=== PATIENT | male | born 1935 | race Caucasian/White ===

== ENCOUNTER → 2016-10-10 | Outpatient (CLI) | payer MEDICARE, OTHER ==
[~2016-10-10] MED LIST: /AMLO25TA; /PANT40TA; ASPI81TA3; BENA40TA2; CIPR500T4; FLAG500T; FURO20TA2; ZANT150T; ZOCO20TA
[2016-10-10 13:31] LABS: CALCIUM LEVEL 8.4 MG/DL (8.8-10.2); CREATININE FOR GFR 1.3 MG/DL (0.70-1.30); GLOMERULAR FILTRATION RATE 56.5 (>35); POTASSIUM SERUM 4.4 MEQ/L (3.5-5.1)
== END ==
LOC: M WUC 10:00
PROVIDERS: ATTEND Nurse Practitioner Family
DX: E11.22 Type 2 diabetes mellitus with diabetic chronic kidney disease (principal)

== ENCOUNTER → 2017-05-01 | Outpatient (CLI) | payer MEDICARE, OTHER ==
[2017-05-01 09:53] LABS: MEAN CORPUSCULAR HEMOGLOBIN 31.3 pg (27.0-33.0); MEAN CORPUSCULAR HGB CONC 33.2 g/dl (32.0-36.5); MEAN CORPUSCULAR VOLUME 94.2 fl (80.0-96.0); RED CELL DISTRIBUTION WIDTH 13.1 % (11.5-14.5); WHITE BLOOD COUNT 7.8 K/mm3 (4.0-10.0)
[2017-05-01 10:14] LABS: ALBUMIN 3.5 GM/DL (3.2-5.2); ALBUMIN/GLOBULIN RATIO 0.97 (1.00-1.93); BILIRUBIN,TOTAL 0.6 MG/DL (0.2-1.0); CALCIUM LEVEL 8.6 MG/DL (8.8-10.2); CREATININE FOR GFR 1.7 MG/DL (0.70-1.30); GLOMERULAR FILTRATION RATE 41.5 (>35); TOTAL PROTEIN 7.1 GM/DL (6.4-8.2)
[2017-05-01 10:18] LABS: POTASSIUM SERUM 5.2 MEQ/L (3.5-5.1)
== END ==
LOC: M WUC 08:14
PROVIDERS: ATTEND Family Medicine
DX: E11.8 Type 2 diabetes mellitus with unspecified complications (principal)

== ENCOUNTER → 2017-05-07 | Outpatient (REF) | payer MEDICARE, OTHER | LOC: M SFHCPLAZ 10:06 | PROVIDERS: ATTEND Family Medicine | DX: N18.3 Chronic kidney disease, stage 3 (moderate) (principal) | CPT/HCPCS: 82043; G0463 ==

== ENCOUNTER → 2017-05-09 | Outpatient (CLI) | payer MEDICARE, OTHER ==
--- NOTE | 2017-05-10 14:32 | REP ---
Clinical: Chronic medical renal disease stage III. Technique: Real time niño scale ultrasound examination using curved array transducer. Findings: The bilateral kidneys are relatively normal in reniform shape with increased parenchymal echogenicity and scattered bilateral cysts as well as suspected renovascular calcifications. There is no evidence for hydronephrosis, obvious renal mass lesion or perinephric fluid collection. The right kidney measures 10.8 x 4.8 x 5.6 cm with multiple cysts measuring up to 1.7 cm in the lower pole. The left kidney measures 11.5 x 5.4 x 5.5 cm with multiple cysts measuring up to 2.3 cm in the upper pole. The bladder is unremarkable and measures 8.2 x 7.0 x 6.8 cm without wall thickening or mass lesion. The prostate gland is heterogeneous and enlarged measuring 5.2 x 5.2 x 4.3 cm (61 ml). Impression: Evidence for chronic medical renal disease and few bilateral renal cysts. Moderately enlarged prostate gland. Signed by Parish Bloom MD 05/09/2017 10:53 P
== END ==
LOC: M SMT 09:42
PROVIDERS: ATTEND Family Medicine
DX: N18.3 Chronic kidney disease, stage 3 (moderate) (principal); N28.1 Cyst of kidney, acquired; N40.1 Benign prostatic hyperplasia with lower urinary tract symptoms

== ENCOUNTER → 2017-07-08 | Outpatient (REF) | payer MEDICARE, OTHER ==
[2017-07-08 13:46] LABS: MEAN CORPUSCULAR HEMOGLOBIN 30.1 pg (27.0-33.0); MEAN CORPUSCULAR VOLUME 93.9 fl (80.0-96.0); PLATELET COUNT, AUTOMATED 240 10^3/uL (150-450); RED CELL DISTRIBUTION WIDTH 13.5 % (11.5-14.5); WHITE BLOOD COUNT 7.3 10^3/uL (4.0-10.0)
[2017-07-08 14:00] LABS: CALCIUM LEVEL 9.3 MG/DL (8.8-10.2); CREATININE FOR GFR 1.37 MG/DL (0.70-1.30); GLOMERULAR FILTRATION RATE 53.2 (>35); POTASSIUM SERUM 4.7 MEQ/L (3.5-5.1)
== END ==
LOC: M SFHCPLAZ 10:19
PROVIDERS: ATTEND Family Medicine
DX: N18.3 Chronic kidney disease, stage 3 (moderate) (principal); E11.8 Type 2 diabetes mellitus with unspecified complications
CPT/HCPCS: 36415; 80048; 83036; 85027; G0463

== ENCOUNTER → 2018-02-05 | Outpatient (CLI) | payer MEDICARE, OTHER ==
[2018-02-05 09:04] LABS: HEMATOCRIT 38.6 % (42.0-52.0); HEMOGLOBIN 12.8 g/dl (13.5-17.5); MEAN CORPUSCULAR HEMOGLOBIN 29.8 pg (27.0-33.0); MEAN CORPUSCULAR HGB CONC 33.2 g/dl (32.0-36.5); PLATELET COUNT, AUTOMATED 207 10^3/uL (150-450); RED BLOOD COUNT 4.29 10^6/uL (4.30-6.10); RED CELL DISTRIBUTION WIDTH 12.8 % (11.5-14.5); WHITE BLOOD COUNT 8.6 10^3/uL (4.0-10.0)
[2018-02-05 09:31] LABS: ANION GAP 7 MEQ/L (8-16); BLOOD UREA NITROGEN 49 MG/DL (7-18); CALCIUM LEVEL 8.4 MG/DL (8.8-10.2); CARBON DIOXIDE LEVEL 27 MEQ/L (21-32); CHLORIDE LEVEL 107 MEQ/L (98-107); CREATININE FOR GFR 1.74 MG/DL (0.70-1.30); GLOMERULAR FILTRATION RATE 40.3 (>35); GLUCOSE, FASTING 213 MG/DL (70-100); POTASSIUM SERUM 4.9 MEQ/L (3.5-5.1); SODIUM LEVEL 141 MEQ/L (136-145)
[2018-02-05 09:33] LABS: ESTIMATED AVERAGE GLUCOSE 212 MG/DL (60-110)
[2018-02-05 09:45] LABS: CREATININE, URINE 92.6 MG/DL; MALB URINE SIEMENS 15.6 MG/L; MAU/CREAT RATIO 16.8 MCG/MG (0.0-30.0)
== END ==
LOC: M WUC 08:09
DX: E11.22 Type 2 diabetes mellitus with diabetic chronic kidney disease (principal); N18.3 Chronic kidney disease, stage 3 (moderate)
CPT/HCPCS: 83036

== ENCOUNTER → 2018-05-15 | Outpatient (CLI) | payer MEDICARE, OTHER ==
[2018-05-15 14:01] LABS: ANION GAP 10 MEQ/L (8-16); BLOOD UREA NITROGEN 37 MG/DL (7-18); CALCIUM LEVEL 8.5 MG/DL (8.8-10.2); CARBON DIOXIDE LEVEL 25 MEQ/L (21-32); CHLORIDE LEVEL 106 MEQ/L (98-107); CREATININE FOR GFR 1.61 MG/DL (0.70-1.30); GLOMERULAR FILTRATION RATE 44.1 (>35); GLUCOSE, FASTING 188 MG/DL (70-100); POTASSIUM SERUM 5.1 MEQ/L (3.5-5.1); SODIUM LEVEL 141 MEQ/L (136-145)
[2018-05-15 15:18] LABS: ESTIMATED AVERAGE GLUCOSE 180 MG/DL (60-110); HEMOGLOBIN A1c 7.9 %
== END ==
LOC: M WUC 08:43
DX: E11.22 Type 2 diabetes mellitus with diabetic chronic kidney disease (principal)
CPT/HCPCS: 83036

== ENCOUNTER → 2018-05-21 | Outpatient (REF) | payer MEDICARE, OTHER ==
[2018-05-21 14:43] LABS: FERRITIN 170 NG/ML (26-388); IRON (FE) 72 UG/DL (65-175); TOTAL IRON BINDING CAPACITY 310 UG/DL (250-450)
[2018-05-21 21:02] LABS: PERCENT SATURATION 23.2 % (19.7-50.0)
== END ==
LOC: M LAB REF 13:40
DX: D64.9 Anemia, unspecified (principal)
CPT/HCPCS: 83550

== ENCOUNTER → 2018-05-22 | Outpatient (REF) | payer MEDICARE, OTHER | LOC: M LAB REF 16:03 | DX: L08.9 Local infection of the skin and subcutaneous tissue, unspecified (principal) | CPT/HCPCS: 87077 ==

== ENCOUNTER → 2018-06-10 | Outpatient (REF) | payer MEDICARE, OTHER | LOC: M LAB REF 09:18 | DX: L72.3 Sebaceous cyst (principal) | CPT/HCPCS: 88304 ==

== ENCOUNTER 2018-06-21 04:54 | Emergency (ER) | payer MEDICARE, OTHER ==
[2018-06-21] MEDS: METHOCARBAMOL 1,000 MG/10 ML VIAL (J2800) IV (06:02)
[2018-06-21] MEDS: ONDANSETRON 4MG/2ML VIAL (J2405) IV (06:02)
[2018-06-21] MEDS: methylPREDNISolone INJ 40 MG/1 ML VIAL (J2920) IV (06:02)
[2018-06-21] MEDS: MORPHINE 4 MG/ML 1ML VIAL/SYRINGE (J2270) IV ×2 (06:11→06:46)
== END 2018-06-21 07:49 | disposition home or self-care (01) ==
LOC: M ED 04:54
DX: M54.5 Low back pain (principal)
CPT/HCPCS: J2270

== ENCOUNTER 2018-06-27 10:18 | Emergency (ER) | payer MEDICARE, OTHER ==
[2018-06-27] MEDS: CYCLOBENZAPRINE 5MG TABLET PO (11:37)
[2018-06-27] MEDS: predniSONE 20 MG TAB PO (11:37)
[2018-06-27] MEDS: MORPHINE 10 MG/ML 1ML VIAL (J2270) IM (11:38)
== END 2018-06-27 12:14 | disposition home or self-care (01) ==
LOC: M ED 10:18
DX: M54.41 Lumbago with sciatica, right side (principal); M54.42 Lumbago with sciatica, left side; Z79.899 Other long term (current) drug therapy; Z79.82 Long term (current) use of aspirin; Z79.84 Long term (current) use of oral hypoglycemic drugs
CPT/HCPCS: J2270

== ENCOUNTER → 2018-08-20 | Outpatient (CLI) | payer MEDICARE, OTHER ==
[2018-08-20 12:20] LABS: HEMATOCRIT 34.8 % (42.0-52.0); HEMOGLOBIN 11.5 g/dl (13.5-17.5); MEAN CORPUSCULAR HEMOGLOBIN 30.4 pg (27.0-33.0); MEAN CORPUSCULAR VOLUME 92.1 fl (80.0-96.0); PLATELET COUNT, AUTOMATED 226 10^3/uL (150-450); RED BLOOD COUNT 3.78 10^6/uL (4.30-6.10); RED CELL DISTRIBUTION WIDTH 14.1 % (11.5-14.5); WHITE BLOOD COUNT 6.5 10^3/uL (4.0-10.0)
[2018-08-20 13:27] LABS: ALBUMIN 3.4 GM/DL (3.2-5.2); ALKALINE PHOSPHATASE 148 U/L (45-117); ALT/SGPT 54 U/L (12-78); ANION GAP 10 MEQ/L (8-16); AST/SGOT 36 U/L (7-37); BILIRUBIN,TOTAL 0.5 MG/DL (0.2-1.0); BLOOD UREA NITROGEN 43 MG/DL (7-18); CALCIUM LEVEL 8.7 MG/DL (8.8-10.2); CARBON DIOXIDE LEVEL 25 MEQ/L (21-32); CHLORIDE LEVEL 108 MEQ/L (98-107); CHOLESTEROL LEVEL 96 MG/DL (<200); CREATININE FOR GFR 1.71 MG/DL (0.70-1.30); GLOMERULAR FILTRATION RATE 41.1 (>35); GLUCOSE, FASTING 157 MG/DL (70-100); HDL CHOLESTEROL 40 MG/DL (>40); LDL CHOLESTEROL 45 MG/DL (<100); NON-HDL-C 56 MG/DL; POTASSIUM SERUM 4.6 MEQ/L (3.5-5.1); SODIUM LEVEL 143 MEQ/L (136-145); TOTAL PROTEIN 6.5 GM/DL (6.4-8.2); TRIGLYCERIDES LEVEL 54 MG/DL (<150)
[2018-08-20 16:29] LABS: ESTIMATED AVERAGE GLUCOSE 252 MG/DL (60-110); HEMOGLOBIN A1c 10.4 %
== END ==
LOC: M WUC 10:01
DX: N18.3 Chronic kidney disease, stage 3 (moderate) (principal); E11.22 Type 2 diabetes mellitus with diabetic chronic kidney disease; I25.10 Atherosclerotic heart disease of native coronary artery without angina pectoris
CPT/HCPCS: 80053

== ENCOUNTER → 2018-12-01 | Outpatient (CLI) | payer MEDICARE, OTHER ==
[~2018-12-01] MED LIST changes: +ATOR40TA75; +BENA20TA8 PO; +CYCL5TAB PO; +LYRI75CA; +METF500T13; +PERC5TAB12 PO; +PRED10TA2 PO; +PRED20TA PO
[2018-12-01 12:40] LABS: CALCIUM LEVEL 8.5 MG/DL (8.8-10.2); CREATININE FOR GFR 1.64 MG/DL (0.70-1.30); POTASSIUM SERUM 4.5 MEQ/L (3.5-5.1)
[2018-12-01 13:10] LABS: HEMOGLOBIN A1c 6.8 %
== END ==
LOC: M WUC 08:45
PROVIDERS: ATTEND Family Medicine
DX: E11.22 Type 2 diabetes mellitus with diabetic chronic kidney disease (principal)

== ENCOUNTER → 2019-04-23 | Outpatient (CLI) | payer MEDICARE, OTHER ==
[~2019-04-23] MED LIST changes: -/AMLO25TA; -/PANT40TA; +AMLO25TA PO; +ASPI81CH33 PO; -ATOR40TA75; +ATOR40TA75 PO; +D3 S1CAP3 PO; +HYDR12CA PO; -LYRI75CA; +LYRI75CA PO; +MAGN400C2 PO; -METF500T13; +METF500T13 PO; +NORV2TAB; +PANT40TA3 PO; +PROT1TAB2
[2019-04-23 12:57] LABS: HEMATOCRIT 36.9 % (42.0-52.0); MEAN CORPUSCULAR HEMOGLOBIN 29.9 pg (27.0-33.0); MEAN CORPUSCULAR HGB CONC 32.5 g/dl (32.0-36.5); MEAN CORPUSCULAR VOLUME 91.8 fl (80.0-96.0); PLATELET COUNT, AUTOMATED 196 10^3/uL (150-450); RED BLOOD COUNT 4.02 10^6/uL (4.30-6.10); WHITE BLOOD COUNT 6.5 10^3/uL (4.0-10.0)
[2019-04-23 13:19] LABS: ALBUMIN 3.4 GM/DL (3.2-5.2); BILIRUBIN,TOTAL 0.3 MG/DL (0.2-1.0); CALCIUM LEVEL 8.9 MG/DL (8.8-10.2); CHOLESTEROL RISK RATIO 2.705 (<5); CREATININE FOR GFR 1.47 MG/DL (0.70-1.30); GLOMERULAR FILTRATION RATE 48.8 (>35); POTASSIUM SERUM 4.7 MEQ/L (3.5-5.1); TOTAL PROTEIN 6.8 GM/DL (6.4-8.2)
[2019-04-23 14:37] LABS: HEMOGLOBIN A1c 7.2 %
== END ==
LOC: M WUC 08:37
PROVIDERS: ATTEND Family Medicine
DX: N18.3 Chronic kidney disease, stage 3 (moderate) (principal); E11.29 Type 2 diabetes mellitus with other diabetic kidney complication; E78.2 Mixed hyperlipidemia

== ENCOUNTER → 2019-09-11 | Outpatient (REF) | payer MEDICARE, OTHER ==
[~2019-09-11] MED LIST changes: +AMLO5TAB6 PO; +HYDR12.55 PO; +LYRI75CA; +PEG1POW PO; +SITA50TAB; +TADA20TA PO; +VITA100066 PO; +VITA500C24 PO
[2019-09-11 11:46] LABS: HEMATOCRIT 42.7 % (42.0-52.0); HEMOGLOBIN 13.5 g/dl (13.5-17.5); MEAN CORPUSCULAR HEMOGLOBIN 29.9 pg (27.0-33.0); MEAN CORPUSCULAR HGB CONC 31.6 g/dl (32.0-36.5); MEAN CORPUSCULAR VOLUME 94.5 fl (80.0-96.0); PLATELET COUNT, AUTOMATED 206 10^3/uL (150-450); RED BLOOD COUNT 4.52 10^6/uL (4.30-6.10); WHITE BLOOD COUNT 7.3 10^3/uL (4.0-10.0)
[2019-09-11 12:06] LABS: ALBUMIN 3.6 GM/DL (3.2-5.2); BILIRUBIN,TOTAL 0.6 MG/DL (0.2-1.0); CALCIUM LEVEL 9.3 MG/DL (8.8-10.2); CHOLESTEROL RISK RATIO 2.523 (<5); CREATININE FOR GFR 1.49 MG/DL (0.70-1.30); GLOMERULAR FILTRATION RATE 48.1 (>35); POTASSIUM SERUM 5.4 MEQ/L (3.5-5.1); TOTAL PROTEIN 7.1 GM/DL (6.4-8.2)
[2019-09-11 12:51] LABS: HEMOGLOBIN A1c 7.6 %
== END ==
LOC: M SFHCPLAZ 09:49
PROVIDERS: ATTEND Family Medicine
DX: E11.22 Type 2 diabetes mellitus with diabetic chronic kidney disease (principal); E78.2 Mixed hyperlipidemia; N18.3 Chronic kidney disease, stage 3 (moderate)
CPT/HCPCS: 36415; 80053; 80061; 83036; 85027; G0463

== ENCOUNTER 2019-09-15 19:16 | Inpatient (IN) | payer MEDICARE, OTHER ==
[~2019-09-15] VITALS: Ht 177.8 cm; Wt 81.1 kg
[~2019-09-15 19:16] MED LIST changes: -AMLO5TAB6 PO; -HYDR12.55 PO; -LYRI75CA; -PEG1POW PO; -SITA50TAB; -TADA20TA PO; -VITA100066 PO; -VITA500C24 PO
[2019-09-15] MEDS ORDERED: LYRI75CA (19:38)
[2019-09-15] MEDS ORDERED: FURO20TA2 (19:38)
[2019-09-15] MEDS ORDERED: VITA500C24 PO (19:38)
[2019-09-15] MEDS ORDERED: METF500T13 PO (19:38)
[2019-09-15] MEDS ORDERED: TADA20TA PO (19:38)
[2019-09-15] MEDS ORDERED: SITA50TAB (19:38)
[2019-09-15] MEDS ORDERED: HYDR12.55 PO (19:38)
[2019-09-15] MEDS ORDERED: NS 1,000 ML IV ONE (20:30)
[2019-09-15] MEDS ORDERED: ONDANSETRON 4MG/2ML VIAL (J2405) IV ONE (20:30)
[2019-09-15] MEDS ORDERED: MORPHINE 4 MG/ML 1ML VIAL/SYRINGE (J2270) IV PRN (20:30)
[2019-09-15] MEDS ORDERED: VITA100066 PO (20:47)
[2019-09-15] MEDS ORDERED: AMLO5TAB6 PO (20:47)
[2019-09-15 20:57] LABS: BASO # 0.1 10^3/uL (0.0-0.2); BASO % 0.4 % (0.0-1.0); EOS # 0.1 10^3/uL (0.0-0.5); EOS % 1.1 % (0.0-3.0); HEMATOCRIT 46.2 % (42.0-52.0); HEMOGLOBIN 14.5 g/dl (13.5-17.5); LYMPH # 1.3 10^3/uL (1.5-5.0); LYMPH % 10.1 % (24.0-44.0); MEAN CORPUSCULAR HEMOGLOBIN 29.4 pg (27.0-33.0); MEAN CORPUSCULAR HGB CONC 31.4 g/dl (32.0-36.5); MEAN CORPUSCULAR VOLUME 93.7 fl (80.0-96.0); MONO # 0.7 10^3/uL (0.0-0.8); MONO % 5.9 % (0.0-5.0); NEUTROPHILS # 10.1 10^3/uL (1.5-8.5); NEUTROPHILS % 81.9 % (36.0-66.0); PLATELET COUNT, AUTOMATED 266 10^3/uL (150-450); RED BLOOD COUNT 4.93 10^6/uL (4.30-6.10); WHITE BLOOD COUNT 12.4 10^3/uL (4.0-10.0)
[2019-09-15] MEDS: HumaLOG INSULIN (NovoLOG) PER UNIT SC SCH (21:00)
[2019-09-15 21:08] LABS: INR 1.02; PROTHROMBIN TIME 13.1 SECONDS (11.8-14.0)
[2019-09-15 21:09] LABS: PARTIAL THROMBOPLASTIN TIME 27.8 SECONDS (25.0-38.4)
[2019-09-15 21:27] LABS: ALBUMIN 4.1 GM/DL (3.2-5.2); ALT/SGPT 97 U/L (12-78); BILIRUBIN,DIRECT 0.1 MG/DL (0.0-0.2); BILIRUBIN,TOTAL 0.5 MG/DL (0.2-1.0); CK-MB VALUE MASS < 1.0 NG/ML (<3.6); CPK CREATINE PHOSPHOKINASE 92 U/L (39-308); LIPASE 65 U/L (73-393); MB/CK RELATIVE INDEX 1.09 (< OR =4); TROPONIN I < 0.02 NG/ML (< 0.10)
--- NOTE | 2019-09-15 21:39 | REPVR ---
PROCEDURE INFORMATION: Exam: CT Head Without Contrast Exam date and time: 09/15/2019 9:24 PM Age: 83 years old Clinical indication: Syncope and collapse; Additional info: Syncope, abd pain TECHNIQUE: Imaging protocol: Computed tomography of the head without contrast. Radiation optimization: All CT scans at this facility use at least one of these dose optimization techniques: automated exposure control; mA and/or kV adjustment per patient size (includes targeted exams where dose is matched to clinical indication); or iterative reconstruction. COMPARISON: CT Head without contrast 02/19/2014 5:43 PM FINDINGS: Brain: There are mild periventricular and subcortical lucencies consistent with chronic microvascular ischemic changes. The niño-white differentiation is maintained. No hemorrhage. No edema. Ventricles: Ventricles and sulci are prominent consistent with age appropriate parenchymal volume loss. Bones/joints: Unremarkable. No acute fracture. Sinuses: Visualized sinuses are unremarkable. No fluid levels. Mastoid air cells: Visualized mastoid air cells are well aerated. Soft tissues: Unremarkable. IMPRESSION: No acute intracranial abnormality. Electronically signed by: Pierre Palacio On 09/15/2019 21:39:31 PM
--- NOTE | 2019-09-15 21:47 | REPVR ---
PROCEDURE INFORMATION: Exam: CT Abdomen And Pelvis Without Contrast Exam date and time: 09/15/2019 9:24 PM Age: 83 years old Clinical indication: Abdominal pain; Generalized; Additional info: Syncope, abd pain TECHNIQUE: Imaging protocol: Computed tomography of the abdomen and pelvis without contrast. Radiation optimization: All CT scans at this facility use at least one of these dose optimization techniques: automated exposure control; mA and/or kV adjustment per patient size (includes targeted exams where dose is matched to clinical indication); or iterative reconstruction. COMPARISON: CT ABD PELVIS W/O FOL BY WIT 06/15/2014 11:27 AM FINDINGS: Lungs: Minimal groundglass opacification in the medial right middle lobe . Liver: Normal. No mass. Gallbladder and bile ducts: Cholecystectomy clips. Pancreas: Fatty atrophy of the pancreas. Spleen: Normal. No splenomegaly. Adrenals: Normal. No mass. Kidneys and ureters: 2 cm cyst at the lower pole of the right kidney. 2 mm nonobstructing calculus in the midpole of the left kidney. Multiple left renal cysts with the largest measuring 3.1 cm in the upper pole. Stomach and bowel: Colon is filled with liquid stool. Appendix: No evidence of appendicitis. Intraperitoneal space: Unremarkable. No free air. No significant fluid collection. Vasculature: Atherosclerotic calcification of the aorta and bilateral iliac vessels. Lymph nodes: Unremarkable. No enlarged lymph nodes. Bladder: Unremarkable as visualized. Reproductive: Unremarkable as visualized. Bones/joints: Unremarkable. No acute fracture. Soft tissues: Unremarkable. IMPRESSION: No acute abdominal or pelvic abnormality. Colon is filled with liquid stool. Clinical correlation with diarrhea. Minimal groundglass opacification in the medial right middle lobe, partially seen. Etiology infectious/inflammatory. Comparison with any recent chest x-ray can be helpful. Electronically signed by: Pierre Palacio On 09/15/2019 21:47:17 PM
--- NOTE | 2019-09-15 22:59 | HPEPDOC ---
[facility] Medical History & Physical Date of Admission Sep 15, 2019 Date of Service: Sep 16, 2019 Primary Care Physician: Leon Shannon MD Attending Physician: Leon Shannon MD History and Physical TIME OF SERVICE: 12:05 AM CHIEF COMPLAINT: Abdominal pain/loss of consciousness HISTORY OF PRESENT ILLNESS: This is an 83-year-old male who presented to the hospital today with complaints of cramping abdominal pain associated with constipation for 3 days. He also had 2 also had a syncopal episodes. The first occurred while he was standing at a meeting; it was preceded by sweating. He doesn't think that his serum glucose was low because his glucoses been in the 90s and he has not missed any meals. The second episode occurred in the ER while he was having a bowel movement. He also reports having an episode of emesis in the ER; he is not sure if there was blood . Prior to the syncopal episodes, he denies having headaches, blurred vision, shortness of breath, sensation of his heart racing, fevers, chills, or chest pain. His chronic right hip and back pain are also bothering him. REVIEW OF SYSTEMS: 12 point review of systems negative except as listed in HPI PAST MEDICAL/ SURGICAL HISTORY: Chronic hypertension CKD 3 NIDDM Restless leg syndrome Chronic CAD status post triple-vessel CABG and stent in [facility]CI BPH Lumbar spine DJD ED/low testosterone SOCIAL HISTORY: He does not smoke FAMILY HISTORY: CVA CKD Hypertension Diabetes ALLERGIES: Please see below. HOME MEDICATIONS: Please see below. PHYSICAL EXAMINATION: VITAL SIGNS: Please see below. GEN: well-nourished / well developed/ appears to be in pain INTEGUMENT: not flushed/ not jaundice HEENT: NCAT /mucus membranes moist and pink CVS: RRR/he has a systolic murmur LUNGS: lungs are clear to auscultation bilaterally on room air ABDOMEN: Contour (flat) / the abdomen is tympanic on percussion, soft & tender with palpation MSK/EXTREMITIES: range of motion intact in all 4 extremities NEURO: CN 2-12 are grossly intact / speech is not dysarthric PSYCH: alert and oriented to person place and time/ able to understand and follow all commands LABORATORY DATA: See below. IMAGING: CT of the head was unremarkable. CT of the abdomen and pelvis " IMPRESSION: No acute abdominal or pelvic abnorma lity. Colon is filled with liquid stool. Clinical correlation with diarrhea. Minimal groundglass opacification in the medial right middle lobe, partially seen. Etiology infectious/inflammatory. Comparison with any recent chest x-ray can be helpful. MICROBIOLOGY: Please see below. ASSESSMENT: Mr. Vigil is an 83-year-old with a history of HTN CKD 3, RLS, CAD, BPH, and lumbar spinal DJD, who is admitted for evaluation of syncope, JUAQUIN and abdominal pain. PLAN: 1. Syncope Orthostats were negative. He is not bradycardic Cause to be determined. EKG ( per Dr. Perez) showed right bundle branch block similar to previous EKGs History of troponin was unremarkable His hemoglobin was above 9. CT of the head was unremarkable Plan: Telemetry for observation / IVF fluids/fall precautions 2. JUAQUIN on CKD 3 Today his creatinine is 1.8 on Sep 11 it was 1.49 Today his BUN is 52 on Sep 11 it was 40 CK is 92 Ultrasound of the kidneys done in April 2017 showed findings consistent with chronic medical renal disease and an enlarged prostate gland Plan: Is/Os / IVF / f/u ulytes for FENa or FEUrea / hold Benzapril and metformin 3. SIRS. Cause to be determined. Likely reactive rather than due to true infection SIRS criteria criteria include WBC >12 & RR >20 GI panel ordered in the ER was negative Despite the fact that the CT identified a right middle lobe groundglass opacity. He does not have upper respiratory tract symptoms Plan: I will hold off ordering antibiotics as this is likely reactive or due to a viral infection rather than to to a bacterial infection 4. Abdominal pain Likely due to constipation Plan: MiraLAX 5. Transaminitis His LFTs only slightly elevated compared to September 11. Plan: if his LFTs remain elevated, and he has worsening abdominal pain, the daytime team may consider ordering Hep panel & liver ultrasound 6. Acute on Chronic lower back pain He has Lumbar spinal DJD Plan: Lidocaine/Percocet/Lyrica 7. Right middle lobe opacity He doesn't have upper respiratory tract symptoms. Plan: Follow up chest x-ray in the morning 8. Chronic hypertension Plan: chlorothiazide, amlodipine and Lasix /benzapril is on hold because of renal impairment 9. NIDDM A1c was 7.6 on September 11 Plan: diabetic diet / f/u accuchecks / hypoglycemia protocol / sliding scale i nsulin / hold oral anti-glycemics while acutely ill 10 .Chronic CAD Plan: Aspirin, atorvastatin 11. Restless leg syndrome. Plan: Lyrica DVT PROPHYLAXIS: Heparin DISPOSITION: Likely home after more than 2 midnight's stay Vital Signs Vital Signs Date Time Temp Pulse Resp B/P (MAP) Pulse Ox O2 Delivery O2 Flow Rate FiO2 09/15/19 21:43 98.3 52 18 122/64 (83) 93 Room Air Laboratory Data Labs 24H Laboratory Tests 2 09/15/19 20:43: POC Glucose (Misc Panel) 194H, POC Sodium (Misc Panel) 139, POC Potassium (Misc Panel) 5.3H, POC Chloride (Misc Panel) 103, POC Total CO2 (Misc Panel) 29.0H, P OC Blood Urea Nitrogen (Misc Panel 52H, POC Ionized Calcium (Misc Panel) 4.7, POC Creatinine (Misc Panel) 1.8H, POC Hematocrit (Misc Panel) 46.0 09/15/19 20:45: Immature Granulocyte % (Auto) 0.6, Neutrophils (%) (Auto) 81.9H, Lymphocytes (%) (Auto) 10.1L, Monocytes (%) (Auto) 5.9H, Eosinophils (%) (Auto) 1.1, Basophils (%) (Auto) 0.4, Neutrophils # (Auto) 10.1H, Lymphocytes # (Auto) 1.3L, Monocytes # (Auto) 0.7, Eosinophils # (Auto) 0.1, Basophils # (Auto) 0.1, Nucleated Red Blood Cells % (auto) 0.0, Prothrombin Time 13.1, Prothromb Time International Ratio 1.02, Activated Partial Thromboplast Time 27.8, Total Bilirubin 0.5, Direct Bilirubin 0.1, Aspartate Amino Transf (AST/SGOT) 48H, Alanine Aminotransferase (ALT/SGPT) 97H, Alkaline Phosphatase 299H, Total Creatine Kin ase 92, Creatine Kinase MB < 1.0, Creatine Kinase MB Relative Index 1.09, Troponin I < 0.02, Total Protein 8.0, Albumin 4.1, Albumin/Globulin Ratio 1.05, Lipase 65L CBC/BMP Laboratory Tests 09/15/19 20:45 Microbiology Microbiology 09/15/19 Gastrointestinal Tract Panel (PCR), Received Pending 09/15/19 Blood Culture, Received Pending 09/15/19 Blood Culture, Received Pending Home Medications Scheduled Amlodipine Besylate (Amlodipine Besylate) 5 Mg Tablet, 5 MG PO DAILY Ascorbic Acid (Vitamin C) 500 Mg Capsule, 500 MG PO DAILY Aspirin (Aspirin) 81 Mg Tab.chew, 81 MG PO DAILY Atorvastatin Calcium (Atorvastatin Calcium) 40 Mg Tab, 40 MG PO QHS Benazepril HCl (Benazepril HCl) 20 Mg Tab, 20 MG PO QHS Cholecalciferol (Vitamin D3) (Vitamin D3) 1,000 Unit Tablet, 1,000 UNIT PO DAILY Magnesium Oxide (Magnesium) 400 Mg Capsule, 400 MG PO BID Metformin HCl (Metformin HCl) 500 Mg Tablet, 500 MG PO QHS Pantoprazole Sodium (Pantoprazole Sodium) 40 Mg Tablet.dr, 40 MG PO QHS Pregabalin (Lyrica) 75 Mg Capsule, 75 MG BID Sitagliptin (Januvia) 50 Mg Tablet, 50 MG DAILY Scheduled PRN Furosemide (Furosemide) 20 Mg Tablet, 20 MG DAILY PRN for EDEMA Hydrochlorothiazide (Hydrochlorothiazide) 12.5 Mg Tablet, 12.5 MG PO DAILY PRN for EDEMA Tadalafil (Tadalafil) 20 Mg Tablet, 20 MG PO Q3DP PRN for ERECTILE DYSFUNCTION Allergies Coded Allergies: No Known Allergies (Unverified , 01/06/19) A-FIB/CHADSVASC A-FIB History Current/History of A-Fib/PAF?: No Current PO Anticoag Therapy: No HUDSON TONG MD Sep 15, 2019 22:59
[2019-09-15] MEDS ORDERED: MAALOX 30 ML SUSP *UDC PO PRN (23:00)
[2019-09-15] MEDS ORDERED: MOM 30ML SUSPENSION UDC PO PRN (23:00)
[2019-09-15] MEDS ORDERED: ACETAMINOPHEN TAB 650MG DOSE (2X325MG) PO PRN (23:00)
[2019-09-15 23:40] VITALS: BP 130/74
[2019-09-16] MEDS: NS 1,000 ML IV SCH ×2 (00:14→21:36)
[2019-09-16] MEDS ORDERED: GLUCAGON FOR INJ 1 MG VIAL (J1610) SC PRN (00:45)
[2019-09-16] MEDS ORDERED: hydroCHLOROthiazide 12.5 MG CAPSULE PO PRN (00:45)
[2019-09-16] MEDS ORDERED: GLUCOSE 4 GM CHEW TABLET PO PRN (00:45)
[2019-09-16] MEDS ORDERED: FUROSEMIDE 20 MG TAB PO PRN (00:45)
[2019-09-16] MEDS ORDERED: DEXTROSE 50% 50 ML SYRINGE IV PRN (00:45)
[2019-09-16] MEDS ORDERED: MIRALAX *UNIT DOSE* 17GM PACKET PO PRN (00:45)
[2019-09-16] MEDS: PREGABALIN 75 MG CAP(LYRICA) PO SCH ×3 (01:25→21:34)
[2019-09-16] MEDS: ATORVASTATIN 20 MG TAB PO SCH ×2 (01:26→21:34)
[2019-09-16] MEDS: PANTOPRAZOLE 40MG TAB (PROTONIX) PO SCH ×2 (01:26→21:35)
[2019-09-16] MEDS: PERCOCET 5MG/325MG TAB PO PRN ×3 (01:26→17:41)
[2019-09-16] MEDS: LIDOCAINE 5% (LIDODERM) PATCH TD SCH ×2 (01:30→21:35)
[2019-09-16] MEDS: HEPARIN SOD (PORCINE) 5000 UNITS/ML VIAL SQ SCH ×3 (05:24→21:35)
[2019-09-16 06:00] VITALS: BP 144/62
[2019-09-16 06:07] LABS: MEAN CORPUSCULAR HEMOGLOBIN 29.6 pg (27.0-33.0); MEAN CORPUSCULAR HGB CONC 31.3 g/dl (32.0-36.5); MEAN CORPUSCULAR VOLUME 94.7 fl (80.0-96.0); PLATELET COUNT, AUTOMATED 195 10^3/uL (150-450); RED BLOOD COUNT 4.12 10^6/uL (4.30-6.10)
[2019-09-16 06:14] LABS: HEMOGLOBIN 12.2 g/dl (13.5-17.5)
[2019-09-16 06:29] LABS: ALBUMIN 2.9 GM/DL (3.2-5.2); BILIRUBIN,TOTAL 0.5 MG/DL (0.2-1.0); CALCIUM LEVEL 8.3 MG/DL (8.8-10.2); CREATININE FOR GFR 1.63 MG/DL (0.70-1.30); GLOMERULAR FILTRATION RATE 43.3 (>35); POTASSIUM SERUM 4.8 MEQ/L (3.5-5.1); TOTAL PROTEIN 6.5 GM/DL (6.4-8.2)
--- NOTE | 2019-09-16 08:03 | REP ---
Chest x-ray: Two views. History: Kidney and leukocytosis. Comparison study: February 19, 2014. Findings: EKG monitoring electrodes are seen. The patient is status post prior median sternotomy. There are colonic air fluid levels in the upper abdomen. The lungs are well inflated and clear. Pleural angles are sharp. Heart size is normal. There are mild degenerative changes in the thoracic spine. Pulmonary vasculature is not increased. Impression: No active cardiopulmonary disease. Electronically Signed by Lyle Anna MD 09/16/2019 07:55 A
--- NOTE | 2019-09-16 08:05 | ECGEPIP ---
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
[2019-09-16] MEDS: HumaLOG INSULIN (NovoLOG) PER UNIT SC SCH ×4 (08:38→21:00)
[2019-09-16] MEDS: ASCORBIC ACID 500 MG TAB PO SCH (08:38)
[2019-09-16] MEDS: DOCUSATE SODIUM 100 MG CAP PO SCH ×2 (08:38→21:34)
[2019-09-16] MEDS: ASPIRIN 81 MG CHEW TABLET PO SCH (08:38)
[2019-09-16] MEDS: VITAMIN D 1,000 INTERNATIONAL UNITS TABLET PO SCH (08:39)
[2019-09-16] MEDS: MAGNESIUM OXIDE 400 MG TAB (MAG-OX) PO SCH ×2 (08:39→21:35)
[2019-09-16] MEDS: amLODIPine 5 MG TAB PO SCH (08:39)
[2019-09-16] MEDS: **NOTE PATIENT COMMENT** MISC XX SCH (08:41)
[2019-09-16] MEDS ORDERED: FLUBLOK(EGG FREE)(QUAD)INFLUENZA VACC 0.5ML SYRINGE (90682)18YRS&OLDER IM ONE (09:00)
[2019-09-16 09:45] LABS: APPEARANCE, URINE HAZY (CLEAR); BACTERIA, URINE AUTO NEGATIVE (NEGATIVE); BILIRUBIN, URINE AUTO NEGATIVE (NEGATIVE); BLOOD, URINE BLOOD NEGATIVE (NEGATIVE); COLOR, URINE YELLOW (YELLOW); GLUCOSE, URINE (UA) AUTO 1+ mg/dL (NEGATIVE); KETONE, URINE AUTO NEGATIVE (NEGATIVE); LEUKOCYTE ESTERASE, URINE AUTO NEGATIVE (NEGATIVE); MUCUS, URINE SMALL (NEGATIVE); NITRITE, URINE AUTO NEGATIVE (NEGATIVE); PROTEIN, URINE AUTO NEGATIVE (NEGATIVE); RBC, URINE AUTO 3 /HPF (0-3); SQUAMOUS EPITHELIAL CELL UR AU 0 /HPF (0-6); URIC ACID CRYSTALS SMALL; UROBILINOGEN, URINE AUTO 0.2 mg/dL (0.0-2.0); WBC, URINE AUTO 1 /HPF (0-3)
[2019-09-16 09:57] LABS: SODIUM,RANDOM URINE 65 MEQ/L; UREA NITROGEN RANDOM URINE 1016 MG/DL
--- NOTE | 2019-09-16 10:40 | REP ---
CHEST, TWO VIEWS: Two views of the chest are performed and compared to a prior study of 09/15/2019. The lungs are unchanged in appearance. The heart is normal in size. The mediastinal silhouette is unchanged. There is mild calcification of the thoracic aorta. Multiple sternal wires and mediastinal clips are present. There are mild degenerative changes of the spine. IMPRESSION: Stable exam. Electronically Signed by Alberto Gipson MD 09/16/2019 08:01 P
[2019-09-16] MEDS ORDERED: PERCOCET 5MG/325MG TAB PO ONE (10:45)
[2019-09-16 14:00] VITALS: BP 138/72
--- NOTE | 2019-09-16 14:31 | IPN ---
DATE: 09/16/2019 Yury was admitted with vasovagal syncope. He had been significantly constipated and was straining his bowel movement when he became syncopal and passed out. He was admitted for orthostasis. He had acute kidney injury on chronic kidney disease. He also has a history of some severe lumbar spinal degenerative disk disease with lumbar spinal stenosis. He apparently had a MRI scan at [facility] sometime in August 2019. No records were sent to me. I was not aware that he was being imaged or being evaluated there except for the patient telling me at the last office visit (Will try to get a copy of the report). In any case, he has severe low back pain and at his last office visit a week ago he asked for a referral to [facility] [place]. He has since been admitted and his back pain is getting progressively worse and is limiting our ability to discharge him. PHYSICAL EXAMINATION: Vital signs stable. 159/67. Alert and conversant in no distress. Lungs clear. Heart: Regular rhythm with a 2/6 systolic ejection murmur. Abdomen: Soft. Nontender. No masses. No peripheral edema. Straight leg raise negative bilaterally. Low back is a little tender to palpate facet and paravertebral muscles. IMPRESSION: 1. Syncope, probably vasovagal. Continue telemetry. He should probably be stable for discharge tomorrow. 2. Low back pain from presumed spinal stenosis. Per patient, he has had a MRI scan done at [facility] showing L4-5 severe lumbosacral spinal stenosis. We did not get any of those records, but we will request them. I put a consultation in for the pain clinic to see him. Apparently, we are not doing inpatient pain management anymore, but at least they can offer him something as an outpatient. 3. Hypertensive heart disease. Continue his current regimen. 4. Coronary artery disease status post PCI. Aspirin 81 mg daily. Atorvastatin 40 mg daily. 5. Acute kidney injury on chronic kidney disease. Renal function is back to baseline. 6. Diabetes. He is on sliding scale insulin coverage while in the hospital.
--- NOTE | 2019-09-16 15:43 | CR.PDOC ---
[facility] Consultation General Date of Consultation: 09/16/19 Consultation Report For: Leon Shannon MD Chief Complaint The patient is a 83-year-old male admitted with a reason for visit of Pb, Syncope. History of Present Illness 83-year-old male with a history of low back pain. Currently taking Percocet as needed for his pain but admits that this has been ineffective in controlling his pain symptoms at current dosage. Home Medications Scheduled Amlodipine Besylate (Amlodipine Besylate) 5 Mg Tablet, 5 MG PO DAILY, (Reported) Ascorbic Acid (Vitamin C) 500 Mg Capsule, 500 MG PO DAILY, (Reported) Aspirin (Aspirin) 81 Mg Tab.chew, 81 MG PO DAILY, (Reported) Atorvastatin Calcium (Atorvastatin Calcium) 40 Mg Tab, 40 MG PO QHS, (Reported) Benazepril HCl (Benazepril HCl) 20 Mg Tab, 20 MG PO QHS, (Reported) Cholecalciferol (Vitamin D3) (Vitamin D3) 1,000 Unit Tablet, 1,000 UNIT PO DAILY, (Reported) Magnesium Oxide (Magnesium) 400 Mg Capsule, 400 MG PO BID, (Reported) Metformin HCl (Metformin HCl) 500 Mg Tablet, 500 MG PO QHS, (Reported) Pantoprazole Sodium (Pantoprazole Sodium) 40 Mg Tablet.dr, 40 MG PO QHS, (Reported) Pregabalin (Lyrica) 75 Mg Capsule, 75 MG BID, (Reported) Sitagliptin (Januvia) 50 Mg Tablet, 50 MG DAILY, (Reported) Scheduled PRN Furosemide (Furosemide) 20 Mg Tablet, 20 MG DAILY PRN for EDEMA, (Reported) Hydrochlorothiazide (Hydrochlorothiazide) 12.5 Mg Tablet, 12.5 MG PO DAILY PRN for EDEMA, (Reported) Tadalafil (Tadalafil) 20 Mg Tablet, 20 MG PO Q3DP PRN for ERECTILE DYSFUNCTION, (Reported) Allergies Coded Allergies: No Known Allergies (Unverified , 01/06/19) Social History Social History Denies tobacco, alcohol, or illicit substance abuse. Review of Systems Subjective Constitutional: Denies: chills, fever HEENT: Denies: head aches, vision problems Pulmonary: Denies: shortness of breath Cardiovascular: Denies: chest pain Musculoskeletal: Reports: other (Low back pain ) Psych: Reports: mood normal Physical Examination Physical Examination Vital Signs/I&O Vital Signs Date Time Temp Pulse Resp B/P (MAP) Pulse Ox O2 Delivery O2 Flow Rate FiO2 09/16/19 14:00 98.2 72 15 138/72 (94) 96 Room Air I&O- Last 24 Hours up to 6 AM 09/16/19 06:00 Intake Total 1550 ml Balance 1550 ml General Exam: Positive: alert, cooperative, no acute distress Chest Exam: Positive: Clear to auscultation Heart Exam: Positive: Regular rate and rhythm Inspection of spine Point tender along lumbar spine, surrounding skin shows no erythema, ecchymosis, increased warmth, and/or skin eruptions noted. Laboratory Data Labs 24H Laboratory Tests 2 09/15/19 20:43: POC Glucose (Misc Panel) 194H, POC Sodium (Misc Panel) 139, POC Potassium (Misc Panel) 5.3H, POC Chloride (Misc Panel) 103, POC Total CO2 (Misc Panel) 29.0H, POC Blood Urea Nitrogen (Misc Panel 52H, POC Ionized Calcium (Misc Panel) 4.7, POC Creatinine (Misc Panel) 1.8H, POC Hematocrit (Misc Panel) 46.0 09/15/19 20:45: Immature Granulocyte % (Auto) 0.6, Neutrophils (%) (Auto) 81.9H, Lymphocytes (%) (Auto) 10.1L, Monocytes (%) (Auto) 5.9H, Eosinophils (%) (Auto) 1.1, Basophils (%) (Auto) 0.4, Neutrophils # (Auto) 10.1H, Lymphocytes # (Auto) 1.3L, Monocytes # (Auto) 0.7, Eosinophils # (Auto) 0.1, Basophils # (Auto) 0.1, Nucleated Red Blood Cells % (auto) 0.0, Prothrombin Time 13.1, Prothromb Time International Ratio 1.02, Activated Partial Thromboplast Time 27.8, Total Bilirubin 0.5, Direct Bilirubin 0.1, Aspartate Amino Transf (AST/SGOT) 48H, Alanine Aminotransferase (ALT/SGPT) 97H, Alkaline Phosphatase 299H, Total Creatine Kinase 92, Creatine Kinase MB < 1.0, Creatine Kinase MB Relative Index 1.09, Troponin I < 0.02, Total Protein 8.0, Albumin 4.1, Albumin/Globulin Ratio 1.05, Lipase 65L 09/16/19 01:34: Bedside Glucose (Misc Panel) 144H 09/16/19 05:54: Nucleated Red Blood Cells % (auto) 0.0, Total Bilirubin 0.5, Aspartate Amino Transf (AST/SGOT) 29, Alanine Aminotransferase (ALT/SGPT) 68, Alkaline Phosphatase 208H, Total Protein 6.5, Albumin 2.9#L, Albumin/Globulin Ratio 0.81L, Anion Gap 7L, Glomerular Filtration Rate 43.3, Calcium Level 8.3L 09/16/19 09:06: Urine Color YELLOW, Urine Appearance HAZY, Urine pH 5.0, Urine Specific [place] 1.020, Urine Protein NEGATIVE, Urine Glucose (Auto)(UA) 1+H, Urine Ketones (Auto) NEGATIVE, Urine Blood NEGATIVE, Urine Nitrite NEGATIVE, Urine Bilirubin NEGATIVE, Urine Urobilinogen 0.2, Urine Leukocyte Esterase (Auto) NEGATIVE, Urine WBC (Auto) 1, Urine RBC (Auto) 3, Urine Hyaline Casts (Auto) 6, Urine Bacteria (Auto) NEGATIVE, Urine Squamous Epithelial Cells 0, Urine Uric Acid Crystals (Auto) SMALL, Urine Mucus (Auto) SMALL, Urine Sperm (Auto) , Urine Random Creatinine 134.0, Urine Random Sodium 65, Urine Random Urea Nitrogen 1016 09/16/19 11:20: Bedside Glucose (Misc Panel) 140H CBC/BMP Laboratory Tests 09/15/19 20:45 09/16/19 05:54 FSBS Laboratory Tests Test 09/16/19 01:34 09/16/19 11:20 Range/Units Bedside Glucose (Misc Panel) 144 140 83-110 MG/DL Microbiology Microbiology 09/15/19 Gastrointestinal Tract Panel (PCR) - Final, Complete 09/15/19 Blood Culture, Received Pending 09/15/19 Blood Culture, Received Pending Assessment Recommend increasing Percocet 5/325mg 1-2 tabs every 6 hrs as needed for pain. Further recommend referral to pain managment for potential MILD procedure which was discussed with patinet today. Recommendation and Plan Thank you , for allowing us to participate in the care of your patient. Should you have any questions we will be glad to discuss this with you at any time please contact us here at the pain center at [phone]. ROME CHRISTIAN Sep 16, 2019 15:42
--- NOTE | 2019-09-16 21:17 | ECHO ---
DATE OF PROCEDURE: 09/16/2019 REFERRING PHYSICIAN: Yuliya Long NP PATIENT LOCATION: Room 4213 REASON FOR ECHOCARDIOGRAM: Syncope. 2D MEASUREMENTS: IVS: 1.1 cm LV: 5.1 cm LVPW: 1.1 cm LA: 3.8 cm Aorta: 3.5 cm IVC: 1.9 cm DOPPLER MEASUREMENTS: Peak velocity across the aortic valve: 1.4 m/s Mitral E: 0.97, Mitral A: 1.1 with a ratio of 0.9 Maximum tricuspid valve velocity: 2.8 m/s 2D COMMENTS: 1. Normal left ventricular size, wall thickness, and normal global left ventricular systolic function. The estimated left ventricular systolic ejection fraction is 60to 65%. 2. Normal left atrium. Normal right atrium and right ventricle. 3. The atrial septum appeared to be normal without evidence of defect or shunt. 4. Normal aortic root. 5. No pericardial effusion seen. 6. Minimally calcified aortic valve with normal leaflet excursion. The mitral valve leaflets as well as the tricuspid valve leaflets appear to be normal. Pulmonic valve as well as the proximal pulmonary artery branches also appear to be normal in limited views. 7. The inferior vena cava was normal in size, central venous pressure is most likely normal. DOPPLER: Doppler detects trace aortic regurgitation, trace mitral regurgitation and mild tricuspid regurgitation. The calculated pulmonary artery systolic pressure varies between 30-40 mmHg. Abnormal relaxation pattern was noted across the mitral valve leaflets consistent with some features of grade 1 left ventricular diastolic dysfunction. IMPRESSION 1. Normal global left ventricular systolic function. There are some features of left ventricular diastolic dysfunction manifested by abnormal relaxation. 2. Aortic valve sclerosis with trace aortic regurgitation but no aortic stenosis. 3. Trace mitral regurgitation. 4. Mild tricuspid regurgitation with mild pulmonary hypertension.
[2019-09-16 22:00] VITALS: BP 188/85
[2019-09-16 23:00] VITALS: BP 159/67
[2019-09-17] MEDS: PERCOCET 5MG/325MG TAB PO PRN ×3 (02:20→14:29)
[2019-09-17 06:00] VITALS: BP 122/85
[2019-09-17] MEDS: HEPARIN SOD (PORCINE) 5000 UNITS/ML VIAL SQ SCH ×3 (06:04→21:16)
[2019-09-17 06:11] LABS: BASO % 0.2 % (0.0-1.0); EOS # 0.4 10^3/uL (0.0-0.5); EOS % 6.1 % (0.0-3.0); HEMOGLOBIN 13.1 g/dl (13.5-17.5); LYMPH # 0.9 10^3/uL (1.5-5.0); LYMPH % 14.8 % (24.0-44.0); MEAN CORPUSCULAR HEMOGLOBIN 30.2 pg (27.0-33.0); MEAN CORPUSCULAR HGB CONC 32.8 g/dl (32.0-36.5); MEAN CORPUSCULAR VOLUME 92.2 fl (80.0-96.0); MONO # 0.7 10^3/uL (0.0-0.8); MONO % 11.6 % (0.0-5.0); NEUTROPHILS # 4.3 10^3/uL (1.5-8.5); NEUTROPHILS % 67.1 % (36.0-66.0); PLATELET COUNT, AUTOMATED 201 10^3/uL (150-450); RED BLOOD COUNT 4.34 10^6/uL (4.30-6.10); WHITE BLOOD COUNT 6.4 10^3/uL (4.0-10.0)
[2019-09-17 06:37] LABS: ALBUMIN 3.1 GM/DL (3.2-5.2); BILIRUBIN,TOTAL 0.5 MG/DL (0.2-1.0); CALCIUM LEVEL 8.2 MG/DL (8.8-10.2); CREATININE FOR GFR 1.39 MG/DL (0.70-1.30); GLOMERULAR FILTRATION RATE 52.1 (>35); POTASSIUM SERUM 4.4 MEQ/L (3.5-5.1); TOTAL PROTEIN 6.5 GM/DL (6.4-8.2)
[2019-09-17] MEDS: HumaLOG INSULIN (NovoLOG) PER UNIT SC SCH ×4 (07:30→21:00)
[2019-09-17] MEDS: ASPIRIN 81 MG CHEW TABLET PO SCH (08:56)
[2019-09-17] MEDS: ASCORBIC ACID 500 MG TAB PO SCH (08:56)
[2019-09-17] MEDS: DOCUSATE SODIUM 100 MG CAP PO SCH ×2 (08:56→21:00)
[2019-09-17] MEDS: MAGNESIUM OXIDE 400 MG TAB (MAG-OX) PO SCH ×2 (08:56→21:17)
[2019-09-17] MEDS: PREGABALIN 75 MG CAP(LYRICA) PO SCH ×2 (08:56→21:17)
[2019-09-17] MEDS: amLODIPine 5 MG TAB PO SCH (08:56)
[2019-09-17] MEDS: VITAMIN D 1,000 INTERNATIONAL UNITS TABLET PO SCH (08:57)
[2019-09-17] MEDS: **NOTE PATIENT COMMENT** MISC XX SCH (08:57)
--- NOTE | 2019-09-17 10:55 | IPNPDOC ---
Subjective Date Seen The patient was seen on 09/17/19. Subjective Chief Complaint/HPI vasovagal syncope JUAQUIN Events since last encounter Patient with multiple episodes of loose stools overnight. Also with 2 episodes of vomiting. c/o abdominal cramping and feeling poorly. is at bedside. Constitutional: Denies: Chills, Fever, Night Sweats Skin: Denies: Rash, Lesions, Breakdown Pulmonary: Denies: Dyspnea, Cough Cardiovascular: Denies: Chest Pain, Palpitations, Orthopnea, Paroxysmal Noc. Dyspnea, Lt Headedness Gastrointestinal: Reports: Nausea, Vomiting, Abdominal Pain, Diarrhea Psych: Reports: Mood Normal; Denies: Depression, Memory Issues Objective Physical Examination General Exam: Positive: Alert, No Acute Distress Eye Exam: Positive: PERRLA, Conjunctiva & lids normal, EOMI; Negative: Sclera icteric Chest Exam: Positive: Clear to auscultation, Normal air movement Heart Exam: Positive: Rate Normal, Regular Rhythm, Normal S1, Normal S2; Negative: Murmurs, Rubs Telemetry: Positive: No significant arrhythmia Abdomen Exam: Positive: BS Hyperactive, Soft; Negative: Tenderness, Hepatospenomegaly Psych Exam: Positive: Mental status NL, Mood NL, Oriented x 3 Assessment /Plan Problems (1) Syncope Status: Acute Problem Text: vasovagal secondary to constipation tele normal. no further episodes. Echo: IMPRESSION 1. Normal global left ventricular systolic function. There are some features of left ventricular diastolic dysfunction manifested by abnormal relaxation. 2. Aortic valve sclerosis with trace aortic regurgitation but no aortic stenosis. 3. Trace mitral regurgitation. 4. Mild tricuspid regurgitation with mild pulmonary hypertension. DD: LAKESHA LANE MD 09/16/192026 DT: DILEEP 09/16/192104 DS: DS2: (2) Constipation Status: Acute (3) Diarrhea Status: Acute Problem Text: abdominal imaging ordered. may be result of constipation noted on CT scan. (4) Vomiting Status: Acute Problem Text: zofran prn (5) JUAQUIN (acute kidney injury) Status: Resolved (6) HTN (hypertension) Status: Chronic Response to Treatment: Stable Problem Text: on HCTZ 12.5 mg po daily. Hold if Cr rises. (7) Low back pain Status: Acute Problem Text: Pain consult placed. Added on oxycodone for pain. Concern for worsening constipation with use of this medication. PT eval Plan/VTE VTE Prophylaxis Ordered?: Yes VS, I&O, 24H, Fishbone Vital Signs/I&O Vital Signs Date Time Temp Pulse Resp B/P (MAP) Pulse Ox O2 Delivery O2 Flow Rate FiO2 09/17/19 09:36 18 09/17/19 08:56 71 122/85 09/17/19 06:00 98.5 96 Room Air I&O- Last 24 Hours up to 6 AM 09/17/19 06:00 Intake Total 1440 ml Output Total 300 ml Balance 1140 ml Laboratory Data 24H LABS Laboratory Tests 2 09/16/19 11:20: Bedside Glucose (Misc Panel) 140H 09/16/19 17:00: Bedside Glucose (Misc Panel) 103 09/16/19 21:20: Bedside Glucose (Misc Panel) 124H 09/17/19 06:01: Immature Granulocyte % (Auto) 0.2, Neutrophils (%) (Auto) 67.1H, Lymphocytes (%) (Auto) 14.8L, Monocytes (%) (Auto) 11.6H, Eosinophils (%) (Auto) 6.1H, Basophils (%) (Auto) 0.2, Neutrophils # (Auto) 4.3, Lymphocytes # (Auto) 0.9L, Monocytes # (Auto) 0.7, Eosinophils # (Auto) 0.4, Basophils # (Auto) 0.0, Nucleated Red Blood Cells % (auto) 0.0, Anion Gap 5L, Glomerular Filtration Rate 52.1, Calcium Level 8.2L, Total Bilirubin 0.5, Aspartate Amino Transf (AST/SGOT) 26, Alanine Aminotransferase (ALT/SGPT) 68, Alkaline Phosphatase 201H, Total Protein 6.5, Albumin 3.1L, Albumin/Globulin Ratio 0.91L CBC/BMP Laboratory Tests 09/17/19 06:01 Microbiology Microbiology 09/15/19 Gastrointestinal Tract Panel (PCR) - Final, Complete 09/15/19 Blood Culture - Preliminary, Resulted No growth after 24 hours . All specim... 09/15/19 Blood Culture - Preliminary, Resulted No growth after 24 hours . All specim... Yuliya Long MANAGER ORDER Sep 17, 2019 10:55
[2019-09-17] MEDS: ONDANSETRON 4MG/2ML VIAL (J2405) IV SCH ×2 (11:30→18:05)
--- NOTE | 2019-09-17 13:42 | REP ---
ACUTE ABDOMINAL SERIES: Four views. HISTORY: Diarrhea and vomiting. COMPARISON STUDY: September 16, 2019. FINDINGS: Upright chest radiograph demonstrates median sternotomy wires and monitoring electrodes. The lungs are clear. There is no evidence of infiltrate or free subdiaphragmatic air. Heart size is normal. Supine erect views of the abdomen demonstrate multiple air-fluid levels in small and large bowel loops. These are not dilated. Ileus versus enteritis pattern. Psoas margins are symmetric. Flank stripes are intact. There is some vascular calcification. No other pathologic calcification is seen. There are clips in the right upper quadrant. IMPRESSION: Air-fluid levels in nondilated small and large bowel loops consistent with enteritis. No evidence of obstruction or free air. Electronically Signed by Lyle Anna MD 09/17/2019 06:28 P
[2019-09-17 14:00] VITALS: BP 142/57
[2019-09-17] MEDS: NS 1,000 ML IV SCH (16:38)
[2019-09-17] MEDS: LIDOCAINE 5% (LIDODERM) PATCH TD SCH (21:17)
[2019-09-17] MEDS: PANTOPRAZOLE 40MG TAB (PROTONIX) PO SCH (21:17)
[2019-09-17] MEDS: ATORVASTATIN 20 MG TAB PO SCH (21:17)
[2019-09-17 22:00] VITALS: BP 156/60
[2019-09-18] MEDS: PERCOCET 5MG/325MG TAB PO PRN ×3 (04:06→18:45)
[2019-09-18] MEDS: ONDANSETRON 4MG/2ML VIAL (J2405) IV SCH ×4 (05:40→18:22)
[2019-09-18] MEDS: HEPARIN SOD (PORCINE) 5000 UNITS/ML VIAL SQ SCH ×3 (05:44→21:50)
[2019-09-18 06:00] VITALS: BP 162/68
[2019-09-18 06:33] VITALS: BP 142/70
[2019-09-18] MEDS: ASCORBIC ACID 500 MG TAB PO SCH (08:22)
[2019-09-18] MEDS: VITAMIN D 1,000 INTERNATIONAL UNITS TABLET PO SCH (08:22)
[2019-09-18] MEDS: PREGABALIN 75 MG CAP(LYRICA) PO SCH ×2 (08:22→21:48)
[2019-09-18] MEDS: ASPIRIN 81 MG CHEW TABLET PO SCH (08:22)
[2019-09-18] MEDS: MAGNESIUM OXIDE 400 MG TAB (MAG-OX) PO SCH ×2 (08:23→21:49)
[2019-09-18] MEDS: amLODIPine 5 MG TAB PO SCH (08:28)
[2019-09-18] MEDS: HumaLOG INSULIN (NovoLOG) PER UNIT SC SCH ×4 (08:35→21:00)
[2019-09-18] MEDS: **NOTE PATIENT COMMENT** MISC XX SCH (08:35)
[2019-09-18] MEDS: DOCUSATE SODIUM 100 MG CAP PO SCH ×2 (08:36→21:00)
[2019-09-18] MEDS ORDERED: GOLYTELY SOLN 4000 ML BTL PO ONE (10:00)
[2019-09-18] MEDS: NS 1,000 ML IV SCH (11:01)
[2019-09-18 14:00] VITALS: BP 162/74
--- NOTE | 2019-09-18 19:20 | IPN ---
DATE: 09/18/2019 Yury was seen on [facility]. He had a "weak, dizzy" spell today when he was changing positions. He did not have any syncope, and there was no arrhythmia associated with it. I spoke to Dr. Magana, and he plans a colonoscopy tomorrow. PHYSICAL EXAMINATION: Blood pressure 162/74, pulse 55, respiratory rate 17. General Appearance: Alert, conversant, visiting with his . Lungs: Clear. Heart: Regular rhythm. Abdomen: Soft, nontender. No peripheral edema. Labs were not drawn today. IMPRESSION: 1. Syncope, probably vasovagal. There has been no recurrence. 2. Anemia. Endoscopy planned for tomorrow. 3. New onset constipation associated with some mild anemia. Endoscopy planned for tomorrow. He could be discharged after endoscopy if stable tomorrow.
[2019-09-18] MEDS: LIDOCAINE 5% (LIDODERM) PATCH TD SCH (21:00)
[2019-09-18] MEDS: PANTOPRAZOLE 40MG TAB (PROTONIX) PO SCH (21:48)
[2019-09-18] MEDS: ATORVASTATIN 20 MG TAB PO SCH (21:49)
[2019-09-18 22:00] VITALS: BP 162/59
[2019-09-19] MEDS: ONDANSETRON 4MG/2ML VIAL (J2405) IV SCH ×3 (00:09→12:00)
[2019-09-19 05:13] LABS: HEMATOCRIT 38.3 % (42.0-52.0); HEMOGLOBIN 12.2 g/dl (13.5-17.5); MEAN CORPUSCULAR HEMOGLOBIN 29.7 pg (27.0-33.0); MEAN CORPUSCULAR HGB CONC 31.9 g/dl (32.0-36.5); MEAN CORPUSCULAR VOLUME 93.2 fl (80.0-96.0); PLATELET COUNT, AUTOMATED 187 10^3/uL (150-450); RED BLOOD COUNT 4.11 10^6/uL (4.30-6.10); WHITE BLOOD COUNT 6.6 10^3/uL (4.0-10.0)
[2019-09-19 05:42] LABS: ALBUMIN 2.9 GM/DL (3.2-5.2); ALT/SGPT 87 U/L (12-78); BILIRUBIN,TOTAL 0.8 MG/DL (0.2-1.0); BLOOD UREA NITROGEN 17 MG/DL (7-18); CALCIUM LEVEL 7.6 MG/DL (8.8-10.2); CARBON DIOXIDE LEVEL 30 MEQ/L (21-32); CHLORIDE LEVEL 107 MEQ/L (98-107); CREATININE FOR GFR 1.15 MG/DL (0.70-1.30); GLOMERULAR FILTRATION RATE > 60.0 (>35); GLUCOSE, FASTING 110 MG/DL (70-100); POTASSIUM SERUM 3.4 MEQ/L (3.5-5.1); SODIUM LEVEL 141 MEQ/L (136-145); TOTAL PROTEIN 5.7 GM/DL (6.4-8.2)
[2019-09-19] MEDS: HEPARIN SOD (PORCINE) 5000 UNITS/ML VIAL SQ SCH ×2 (05:59→13:00)
[2019-09-19] MEDS: NS 1,000 ML IV SCH (05:59)
[2019-09-19 06:00] VITALS: BP 160/66
[2019-09-19] MEDS: HumaLOG INSULIN (NovoLOG) PER UNIT SC SCH ×2 (07:30→12:21)
[2019-09-19] MEDS ORDERED: LIDOCAINE 2% INJ 100 MG/5 ML SDV (FOR ANES.) As Ordered ONE (07:53)
[2019-09-19] MEDS ORDERED: propofoL 500 MG/50 ML VIAL As Ordered ONE (07:53)
[2019-09-19] MEDS: **NOTE PATIENT COMMENT** MISC XX SCH (09:00)
[2019-09-19 09:20] VITALS: BP 172/80
[2019-09-19] MEDS: ASPIRIN 81 MG CHEW TABLET PO SCH (09:23)
[2019-09-19 09:24] VITALS: BP 182/81
[2019-09-19] MEDS: DOCUSATE SODIUM 100 MG CAP PO SCH (09:24)
[2019-09-19] MEDS: amLODIPine 5 MG TAB PO SCH (09:24)
[2019-09-19] MEDS: PREGABALIN 75 MG CAP(LYRICA) PO SCH (09:24)
[2019-09-19] MEDS: VITAMIN D 1,000 INTERNATIONAL UNITS TABLET PO SCH (09:24)
[2019-09-19] MEDS: MAGNESIUM OXIDE 400 MG TAB (MAG-OX) PO SCH (09:24)
[2019-09-19] MEDS: ASCORBIC ACID 500 MG TAB PO SCH (09:24)
--- NOTE | 2019-09-19 10:57 | ROOR ---
Patient Name: Yury Vigil Procedure Date: 09/19/2019 7:31 AM Date of : 1935 Age: 83 Gender: Male Note Status: Finalized Procedure: Upper GI endoscopy Indications: Epigastric abdominal pain Providers: Hugo Magana MD Referring MD: 1. No Referring Physician 1. No Referring Physician, Admin. Requesting Provider: Medicines: Monitored Anesthesia Care Complications: No immediate complications. Procedure: Pre-Anesthesia Assessment: - The heart rate, respiratory rate, oxygen saturations, blood pressure, adequacy of pulmonary ventilation, and response to care were monitored throughout the procedure. The Endoscope was introduced through the mouth, and advanced to the second part of duodenum. The upper GI endoscopy was accomplished without difficulty. The patient tolerated the procedure well. Findings: The Z-line was variable and was found 40 cm from the incisors. No other significant abnormalities were identified in a careful examination of the stomach. The exam of the duodenum was otherwise normal. Impression: - Z-line variable, 40 cm from the incisors. - No specimens collected. - The examination was otherwise normal. Recommendation: - Patient has a contact number available for emergencies. The signs and symptoms of potential delayed complications were discussed with the patient. Return to normal activities tomorrow. Written discharge instructions were provided to the patient. - Discharge patient to home. - Continue present medications. - High fiber diet. - Return to referring physician. - Return to GI clinic in 1 month. - The findings and recommendations were discussed with the patient's family. Hugo Magana MD Hugo Magana MD 09/19/2019 10:56:48 AM Electronically signed by Hugo Magana MD Number of Addenda: 0 Note Initiated On: 09/19/2019 7:31 AM Estimated Blood Loss: Estimated blood loss: none.
--- NOTE | 2019-09-19 11:04 | ROOR ---
Patient Name: Yury Vigil Procedure Date: 09/19/2019 8:41 AM Date of : 1935 Age: 83 Gender: Male Note Status: Finalized Procedure: Total Colonoscopy to Cecum Indications: Lower abdominal pain, Change in bowel habits Providers: Hugo Magana MD Referring MD: 1. No Referring Physician 1. No Referring Physician, Admin. Requesting Provider: Medicines: Monitored Anesthesia Care Complications: No immediate complications. Procedure: Pre-Anesthesia Assessment: - The heart rate, respiratory rate, oxygen saturations, blood pressure, adequacy of pulmonary ventilation, and response to care were monitored throughout the procedure. The Colonoscope was introduced through the anus and advanced to the cecum, identified by appendiceal orifice and ileocecal valve. The colonoscopy was performed without difficulty. The patient tolerated the procedure well. The quality of the bowel preparation was excellent. Findings: The perianal and digital rectal examinations were normal. Non-bleeding internal hemorrhoids were found during retroflexion. The hemorrhoids were small and Grade I (internal hemorrhoids that do not prolapse). No other significant abnormalities were identified in a careful examination of the remainder of the colon. The exam was otherwise without abnormality on direct and retroflexion views. Impression: - Non-bleeding internal hemorrhoids. - The examination was otherwise normal on direct and retroflexion views. - No specimens collected. - The exam was otherwise normal to the cecum. Recommendation: - Patient has a contact number available for emergencies. The signs and symptoms of potential delayed complications were discussed with the patient. Return to normal activities tomorrow. Written discharge instructions were provided to the patient. - High fiber diet. - Discharge patient to home. - Continue present medications. - Repeat colonoscopy for symptoms only. - Return to referring physician. - Return to my office in 1 week. - The findings and recommendations were discussed with the patient's family. Hugo Magana MD Hugo Magana MD 09/19/2019 11:04:16 AM Electronically signed by Hugo Magana MD Number of Addenda: 0 Note Initiated On: 09/19/2019 8:41 AM Estimated Blood Loss: Estimated blood loss: none.
[2019-09-19] MEDS: PERCOCET 5MG/325MG TAB PO PRN (11:07)
--- NOTE | 2019-09-19 12:46 | DS.PDOC ---
Discharge Summary General Date of Admission Sep 15, 2019 at 22:52 Discharge Summary PROCEDURES PERFORMED DURING STAY: [None]. ADMITTING DIAGNOSES: 1. . DISCHARGE DIAGNOSES: 1. . COMPLICATIONS/CHIEF COMPLAINT: Pb, Syncope. HISTORY OF PRESENT ILLNESS: . HOSPITAL COURSE: . DISCHARGE MEDICATIONS: Please see below. ALLERGIES: Please see below. PHYSICAL EXAMINATION ON DISCHARGE: VITAL SIGNS: Please see below. GENERAL: HEENT: NECK: CARDIOVASCULAR EXAMINATION: RESPIRATORY EXAMINATION: ABDOMINAL EXAMINATION: EXTREMITIES: SKIN: NEUROLOGICAL EXAMINATION: PSYCHIATRIC EXAMINATION: LABORATORY DATA: Please see below. IMAGING: PROGNOSIS: ACTIVITY: [As tolerated]. DIET: DISCHARGE PLAN: DISPOSITION: . DISCHARGE INSTRUCTIONS: 1. . ITEMS TO FOLLOWUP ON ON OUTPATIENT: 1. . DISCHARGE CONDITION: [Stable]. TIME SPENT ON DISCHARGE: Greater than minutes. Vital Signs/I&Os Vital Signs Date Time Temp Pulse Resp B/P (MAP) Pulse Ox O2 Delivery O2 Flow Rate FiO2 09/19/19 11:37 20 09/19/19 09:24 51 182/81 09/19/19 06:00 96.8 97 Room Air I&O- Last 24 Hours up to 6 AM 09/19/19 06:00 Intake Total 4470 ml Output Total 0 ml Balance 4470 ml Laboratory Data Labs 24H Laboratory Tests 2 09/18/19 16:24: Bedside Glucose (Misc Panel) 129H 09/18/19 21:29: Bedside Glucose (Misc Panel) 145H 09/19/19 04:58: Nucleated Red Blood Cells % (auto) 0.0, Anion Gap 4L, Glomerular Filtration Rate > 60.0, Calcium Level 7.6L, Total Bilirubin 0.8#, Aspartate Amino Transf (AST/SGOT) 58H, Alanine Aminotransferase (ALT/SGPT) 87H, Alkaline Phosphatase 186H, Total Protein 5.7L, Albumin 2.9L, Albumin/Globulin Ratio 1.04 09/19/19 11:22: Bedside Glucose (Misc Panel) 149H CBC/BMP Laboratory Tests 09/19/19 04:58 FSBS Laboratory Tests Test 09/18/19 16:24 09/18/19 21:29 09/19/19 11:22 Range/Units Bedside Glucose (Misc Panel) 129 145 149 83-110 MG/DL Microbiology Microbiology 09/15/19 Gastrointestinal Tract Panel (PCR) - Final, Complete 09/15/19 Blood Culture - Preliminary, Resulted No Growth after 72 hours. All specime... 09/15/19 Blood Culture - Preliminary, Resulted No Growth after 72 hours. All specime... Discharge Medications Scheduled Amlodipine Besylate (Amlodipine Besylate) 5 Mg Tablet, 5 MG PO DAILY, (Reported) Ascorbic Acid (Vitamin C) 500 Mg Capsule, 500 MG PO DAILY, (Reported) Aspirin (Aspirin) 81 Mg Tab.chew, 81 MG PO DAILY, (Reported) Atorvastatin Calcium (Atorvastatin Calcium) 40 Mg Tab, 40 MG PO QHS, (Reported) Benazepril HCl (Benazepril HCl) 20 Mg Tab, 20 MG PO QHS, (Reported) Cholecalciferol (Vitamin D3) (Vitamin D3) 1,000 Unit Tablet, 1,000 UNIT PO DAILY, (Reported) Magnesium Oxide (Magnesium) 400 Mg Capsule, 400 MG PO BID, (Reported) Metformin HCl (Metformin HCl) 500 Mg Tablet, 500 MG PO QHS, (Reported) Pantoprazole Sodium (Pantoprazole Sodium) 40 Mg Tablet.dr, 40 MG PO QHS, (Reported) Pregabalin (Lyrica) 75 Mg Capsule, 75 MG BID, (Reported) Sitagliptin (Januvia) 50 Mg Tablet, 50 MG DAILY, (Reported) Scheduled PRN Furosemide (Furosemide) 20 Mg Tablet, 20 MG DAILY PRN for EDEMA, (Reported) Hydrochlorothiazide (Hydrochlorothiazide) 12.5 Mg Tablet, 12.5 MG PO DAILY PRN for EDEMA, (Reported) Tadalafil (Tadalafil) 20 Mg Tablet, 20 MG PO Q3DP PRN for ERECTILE DYSFUNCTION, (Reported) Allergies Coded Allergies: No Known Allergies (Unverified , 01/06/19) Rex Washington MD Sep 19, 2019 12:45
[2019-09-19] MEDS ORDERED: PEG1POW PO (12:53)
[2019-09-19 14:00] VITALS: BP 150/58
== END 2019-09-19 15:19 | disposition home or self-care (01) | DRG 312 ==
LOC: M ED 19:16 → M ED INP 22:52 → ENRESERV 23:16 → M MSPAV 23:40
PROVIDERS: ADMIT Internal Medicine; ATTEND Family Medicine
PROC: 0DJD8ZZ Inspection of Lower Intestinal Tract, Via Natural or Artificial Opening Endoscopic (ICD-10-PCS; 2019-09-19)
PROC: 0DJ08ZZ Inspection of Upper Intestinal Tract, Via Natural or Artificial Opening Endoscopic (ICD-10-PCS; principal; 2019-09-19 08:00)
DX: R55 Syncope and collapse (principal); N17.9 Acute kidney failure, unspecified; K59.00 Constipation, unspecified; N18.3 Chronic kidney disease, stage 3 (moderate); E11.9 Type 2 diabetes mellitus without complications; G25.81 Restless legs syndrome; Z98.61 Coronary angioplasty status; I25.10 Atherosclerotic heart disease of native coronary artery without angina pectoris; N40.1 Benign prostatic hyperplasia with lower urinary tract symptoms; G89.29 Other chronic pain; M51.36 Other intervertebral disc degeneration, lumbar region; I45.10 Unspecified right bundle-branch block; R74.0 Nonspecific elevation of levels of transaminase and lactic acid dehydrogenase [LDH]; Z79.82 Long term (current) use of aspirin; Z79.84 Long term (current) use of oral hypoglycemic drugs; Z79.899 Other long term (current) drug therapy; M48.061 Spinal stenosis, lumbar region without neurogenic claudication; I11.9 Hypertensive heart disease without heart failure; R11.10 Vomiting, unspecified; R19.7 Diarrhea, unspecified; D64.9 Anemia, unspecified; K64.0 First degree hemorrhoids

== ENCOUNTER → 2019-10-14 | Outpatient (CLI) | payer MEDICARE, OTHER ==
[~2019-10-14] MED LIST changes: +AMLO5TAB6 PO; +HYDR12.55 PO; +LYRI75CA; +PEG1POW PO; +SITA50TAB; +TADA20TA PO; +VITA100066 PO; +VITA500C24 PO
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
== END ==
LOC: M PAIN 11:00
PROVIDERS: ATTEND Family Medicine
DX: M54.17 Radiculopathy, lumbosacral region (principal); I10 Essential (primary) hypertension; G25.81 Restless legs syndrome; E11.9 Type 2 diabetes mellitus without complications; Z88.8 Allergy status to other drugs, medicaments and biological substances; Z79.82 Long term (current) use of aspirin; Z79.84 Long term (current) use of oral hypoglycemic drugs; Z79.899 Other long term (current) drug therapy

== ENCOUNTER → 2019-11-23 | Outpatient (CLI) | payer MEDICARE, OTHER ==
[~2019-11-23] MED LIST changes: +ISOVUE-M 300 61% 15ML VIAL (Q9967) As Ordered ONE; +LIDOCAINE 1% SDV INJ 30 ML VIAL As Ordered ONE; +methylPREDNISolone SUSP 40 MG/ML (DEPO-medrol) VIAL (J1030) As Ordered ONE
--- NOTE | 2019-11-23 10:22 | REP ---
C-ARM VIEWS LUMBAR SPINE: CLINICAL HISTORY: Pain. Two C-arm views of the lumbar spine performed during lumbar epidural injection by Dr. Adams. Needle is seen at the L4-5 level. 15 seconds fluoroscopy time utilized. Electronically Signed by Alberot Gipson MD 11/23/2019 10:59 A
--- NOTE | 2019-12-04 04:15 | ECWPNPC ---
PATIENT NAME: RAFAEL NASH : 1935 GENDER: MALE VISIT DATE: 11/23/2019 DISCHARGE DATE: 11/23/19 1040 VISIT LOCKED DATE TIME: PHYSICIAN: NANCY ZEPEDA MD PHYSICIAN PAGER NO: [phone] RESOURCE: NANCY ZEPEDA MD REASON FOR APPOINTMENT 1. LESI L4-L5 HISTORY OF PRESENT ILLNESS HISTORY OF PRESENT ILLNESS: PAIN THE PATIENT DESCRIBES THE PAIN... FALL RISK SCREENING: SCREENING :NO FALLS REPORTED IN THE LAST YEAR CURRENT MEDICATIONS TAKING ASCORBIC ACID 500 MG TABLET 1 TABLET ORALLY ONCE A DAY, NOTES: 11-22-19899 TAKING ASPIR-81 1 TAB TABLET DELAYED RELEASE 1 TABLET ORALLY ONCE A DAY, NOTES: 11-22-19899 TAKING BLOOD GLUCOSE MONITOR SYSTEM W/DEVICE KIT DIRECTED _ DIRECTED E11.9 TAKING CHOLECALCIFEROL 50 MCG (1999) CAPSULE 1 TABLET ORALLY ONCE A DAY, NOTES: 899 TAKING CIALIS 20 MG TABLET 1 TABLET ORALLY EVERY 3 DAYS NEEDED, NOTES: MORE THAN 48 HOURS AGO TAKING FREESTYLE LANCETS - MISCELLANEOUS USE FOUR TIMES A DAY TAKING FREESTYLE LITE TEST - STRIP USE 4 TIMES A DAY TAKING FUROSEMIDE 20 MG TABLET 1 TAB(S) ORALLY DAILY NEEDED, NOTES: NONE RECENTLY, USES PRN FOR EDEMA TAKING HYDROCHLOROTHIAZIDE 12.5 MG TABLET DIRECTED ORALLY ONCE DAILY NEEDED FOR EDEMA, NOTES: 11-22-19899 TAKING JANUVIA 50 MG TABLET 1 TABLET ORALLY ONCE A DAY, NOTES: 11-22-19899 TAKING LIPITOR 40 MG TABLET 1 TABLET ORALLY ONCE A DAY, NOTES: 11-22-192199 TAKING LOTENSIN 20 MG TABLET 1 TABLET ORALLY ONCE A DAY, NOTES: 11-22-19 TAKING MAGNESIUM OXIDE 400 MG CAPSULE 1 CAPSULE ORALLY TWICE DAILY, NOTES: 11-22-19899 TAKING METFORMIN HCL 500 MG TABLET 1 TABLET WITH MEALS ORALLY ONCE A DAY, NOTES: 11-22-192199 TAKING NORVASC 5 MG TABLET 1 TABLET ORALLY ONCE A DAY, NOTES: 11-22-19899 TAKING POLYETHYLENE GLYCOL 1 POWDER 1 PACKET ORALLY ONCE DAILY NEEDED FOR CONSTIPATION, NOTES: 899 TAKING PROTONIX 40 MG TABLET DELAYED RELEASE TAKE ONE TABLET BY MOUTH EVERY DAY ORALLY DAILY, NOTES: 11-22-192199 TAKING LYRICA 100 MG CAPSULE 1 CAPSULE ORALLY ONCE A DAY CODE D, NOTES: 11-22-192199 NOT-TAKING CLOTRIMAZOLE-BETAMETHASONE 1-0.05 % CREAM 1 APPLICATION APPLY UNDER ARMS EXTERNALLY TWICE A DAY NEEDED NOT-TAKING PROAIR HFA 108 (90 BASE) MCG/ACT AEROSOL SOLUTION 2 PUFFS NEEDED INHALATION QID PRN MEDICATION LIST REVIEWED AND RECONCILED WITH THE PATIENT PAST MEDICAL HISTORY CHRONIC RHINITIS HTN RLS FATTY LIVER CT 09/16 DM TYPE 2; REFERRED ENDO/DR Maryjo HITCHCOCK 07/27 CAD S/P CABG 11/14 3 VESSEL, PCI/STENT 07/17 RCA DIVERTICULOSIS 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 BPH 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, MILD SPINAL STENOSIS CT SPINE 07/27; SEVERE L/S SPINAL STENOSIS AT L4-5 MRI AT [facility] 08/27 ALLERGIES BETA KHANH: DECREASED HR - SIDE EFFECTS SURGICAL HISTORY CABG-VIDAL TO LAD, SVG TO OM,SVG TO CX 11/14 PTCA/STENT RCA 07/17 COLONOSCOPY (ONLY HYPERPLASTIC POLYP FOUND) EGD--NORMAL 06/22 EGD 09/2019 FAMILY HISTORY FATHER: 65 YRS, STROKE, DIAGNOSED WITH UNSPECIFIED CEREBRAL ARTERY OCCLUSION WITH CEREBRAL INFARCTION MOTHER: 100 YRS, OLD AGE SIBLINGS: ALIVE, HYPERTENSION, KIDNEY DISEASE, TYPE 2 DM SON(S): ALIVE DAUGHTER(S): ALIVE 2 BROTHER(S) , 8 SISTER(S) . 1 SON(S) , 2 DAUGHTER(S) - HEALTHY. REVIEWED, NO CHANGES. SOCIAL HISTORY GENERAL: TOBACCO USE ARE YOU A:NEVER SMOKER NEVER SMOKER HIV / HEP-C SCREENING HIV TEST OFFERED TO PATIENT:YES DELCINED DATE OFFERED:08/22/2018 TEST ACCEPTED:NO HEP-C TEST OFFERED TO PATIENT:YES DECLINED DATE OFFERED:08/22/2018 REASON:PATIENT DECLINED TEST ACCEPTED:NO REASON:PATIENT DECLINED BROCHURE PROVIDED TO PATIENTYES OTHERS AT HOME: SPOUSE. HOUSING: OWNS HOME. EDUCATION LEVEL OF EDUCATION:HIGH SCHOOL DIET: LOW FAT, LOW CHOLESTEROL, NO ADDED SALT. LANGUAGE LANGUAGES SPOKEN:ESTONIAN DOMESTIC VIOLENCE DO YOU FEEL SAFE IN YOUR ENVIRONMENT?YES RECREATIONAL DRUG USE DRUG USE?NO EXERCISE: WALKS, DAILY 1-1.5 MILES. LEARNING BARRIERS / SPECIAL NEEDS CHANGE FROM LAST VISIT?NO BARRIERS TO LEARNING?NO HEARING IMPAIRED?NO VISION IMPAIRED?YES COGNITIVELY IMPAIRED?NO :CORRECTIVE LENSES READINESS TO LEARN?YES LEARNING PREFERENCES?NO LEARNING CAPABILITIES PRESENT?YES EMOTIONAL BARRIERS?NO SPECIAL DEVICES?NO WAREHOUSE ADMINISTRATOR NEEDED?NO PAIN CLINIC PFS, CLERGY, PUBLIC HEALTH REFERRALS HAS THE PATIENT BEEN EDUCATED REGARDING HIS/HER PLAN OF CARE?YES HAS THE PATIENT BEEN EDUCATED REGARDING PAIN, THE RISK FOR PAIN, THE IMPORTANCE OF EFFECTIVE PAIN MANAGEMENT, AND THE PAIN ASSESSMENT PROCESS?YES LATEX QUESTIONNAIRE LATEX ALLERGY : HAVE YOU EVER DEVELOPED ANY TYPE OF REACTION AFTER HANDLING LATEX PRODUCTS SUCH RUBBER GLOVES, CONDOMS, DIAPHRAGMS, BALLOONS, SOCKS, OR UNDERWEAR?NO LATEX ALLERGY : HAVE YOU EVER DEVELOPED ANY TYPE OF REACTION DURING OR AFTER DENTAL APPOINTMENT, VAGINAL/RECTAL EXAMINATION, SURGICAL PROCEDURE, OR ANY OTHER EXPOSURE?NO DATE ASKED : 12/05/2018 LATEX RISK : HAVE YOU EVER HAD ANY DIFFICULTY BREATHING OR HIVES AFTER EATING OR HANDLING ANY FRUITS, OR VEGETABLES; SUCH KIWI, BANANAS, STONE FRUITS, OR CHESTNUTSNO LATEX RISK : DO YOU HAVE A PREVIOUS PERSONAL HISTORY OF MORE THAN NINE SURGERIES, SPINA BIFIDA, OR REPEATED CATHERIZATIONS? NO LATEX RISK : ARE YOU FREQUENTLY EXPOSED TO LATEX PRODUCTS IN YOUR OCCUPATION?NO CAFFEINE CAFFEINE USE?NO ADVANCE DIRECTIVE ADVANCE DIRECTIVE DISCUSSED WITH PATIENT:YES DECLINED BAPTISM BAPTISM NO HINDU BELIEFS THAT WOULD IMPACT HEALTH CARE. MARITAL STATUS: -REYNALDO. 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 SEXUAL HX HAD SEX IN THE LAST 12 MONTHS (VAGINAL, ORAL, OR ANAL)?NO HAVE YOU EVER HAD AN STD?NO REVIEWED, UPDATED. HOSPITALIZATION/MAJOR DIAGNOSTIC PROCEDURE SURGERY RELATED REVIEW OF SYSTEMS REVIEWED BY: PROVIDER: . CONSTITUTIONAL: ANY CHANGE IN YOUR MEDICAL CONDITION? NO . CHILLS NO . FEVER NO . INFECTION: DO YOU HAVE NEW INFECTIONS? NO . DO YOU HAVE HISTORY OF MRSA? NO . MUSCULOSKELETAL: ANY NEW PATTERNS OF PAIN OR NUMBNESS? YES . GASTROENTEROLOGY: ANY NEW CHANGE IN BOWEL CONTROL? YES . GENITOURINARY: ANY NEW CHANGE IN BLADDER CONTROL? NO . IS THERE A CHANCE YOU COULD BE ? NO . HEMATOLOGY/LYMPH: DO YOU TAKE ANY BLOOD THINNERS? (FOR EXAMPLE- COUMADIN, PLAVIX, AGGRENOX, PLATEL, PRADAXA, OR XARELTO) NO . WHEN WAS YOUR LAST DOSE? DATE: TIME: . NEUROLOGY: HAVE YOU FALLEN IN THE PAST 12 MONTHS? YES . ANY NEW EXTREMITY NUMBNESS OR WEAKNESS? YES . CARDIOLOGY: DO YOU HAVE A PACEMAKER OR DEFIBRILLATOR? NO . RESPIRATORY: HAVE YOU BEEN SICK IN THE PAST WEEK? NO . FEVER NO . FLU LIKE SYMPTOMS? NO . COUGH NO . INTEGUMENTARY: DO YOU HAVE ANY RASHES OR OPEN SORES? NO . ALLERGIC/IMMUNO: ARE YOU ALLERGIC TO IV DYE? NO . ANY NEW ALLERGIES? NO . PSYCHIATRIC: DO YOU HAVE THOUGHTS OF HURTING YOURSELF OR SOMEONE ELSE? NO . ARE YOU ABUSED, NEGLECTED, OR IN AN UNSAFE ENVIRONMENT? NO . ENDOCRINOLOGY: ARE YOU DIABETIC? YES . OTHER: DO YOU NEED ANY PRESCRIPTIONS? NO . IF YES, PLEASE LIST: ____ . ANY NEW PROBLEMS WITH YOUR MEDICATIONS? NO . WHEN DID YOU LAST EAT? 11-22-191899 . WHEN DID YOU LAST DRINK? 11-22-191899 . WHAT DID YOU LAST DRINK? WATER . NAME OF PERSON DRIVING YOU HOME? REYNALDO . DO YOU HAVE ANY OTHER QUESTIONS OR CONCERNS NO . VITAL SIGNS WT 184.0 LBS, HT 70 IN, BMI 26.40 INDEX, BP 162/78 MM HG, HR 56 /MIN, RR 18 /MIN, TEMP 97.0 F, OXYGEN SAT % 97%, NA INITIALS AW 0855, REVIEWED BY: LS. ASSESSMENTS INTERVERTEBRAL DISC DISORDERS WITH RADICULOPATHY, LUMBAR REGION - M51.16 (PRIMARY) PROCEDURES PRE PROCEDURE DIAGNOSIS LUMBAR SPINAL STENOSIS , LUMBAR DISC DISORDER WITH RADICULOPATHY POST PROCEDURE DIAGNOSIS LUMBAR SPINAL STENOSIS , LUMBAR DISC DISORDER WITH RADICULOPATHY PROCEDURE LUMBAR EPIDURAL STEROID INJECTION UNDER FLUOROSCOPIC GUIDANCE SURGEON DR. NNACY ZEPEDA BUSINESS INTELLIGENCE ADMINISTRATOR NONE ANESTHESIA LOCAL PRE PROCEDURE NOTE THE PATIENT HAS A HISTORY OF CHRONIC LOW BACK PAIN. I EVALUATED THE PATIENT AND REVIEWED THE CHART. I WENT OVER THE RISKS, ALTERNATIVES, AND BENEFITS ASSOCIATED WITH THIS PROCEDURE. THE PATIENT WOULD LIKE TO PROCEED AND GIVE CONSENT TO PERFORMED THE PROCEDURE. THE PATIENT DENIES UNEXPLAINABLE WEIGHT LOSS, FEVER, CHILLS, OR NEW CHANGES IN URINARY OR BOWEL CONTROL. DESCRIPTION OF PROCEDURE THE PATIENT WAS BROUGHT TO THE PROCEDURE ROOM AND PLACED IN THE PRONE POSITION. THE LUMBOSACRAL AREA WAS CLEANED WITH BETADINE SOLUTION AND DRAPED ASEPTICALLY. THE PROCEDURE WAS DONE UNDER STERILE CONDITIONS. I CHECKED LATERALITY AND THE LEVEL WHERE THE PROCEDURE WAS GOING TO BE PERFORMED WITH THE PATIENT AND THE SUPPORTING STAFF AT THE MOMENT OF THE TIME OUT IN THE PROCEDURE ROOM. UNDER FLUOROSCOPIC GUIDANCE, THE TARGET POINT WAS SELECTED AT THE INTERLAMINAR LEVEL OF L4-L5. LIDOCAINE WAS USED TO NUMB THE SKIN AND THE SUBCUTANEOUS TISSUE BELOW IT. EPIDURAL TUOHY NEEDLE, 17-GAUGE, WAS ADVANCED UNDER FLUOROSCOPIC GUIDANCE AND FOLLOWING PATIENT FEEDBACK UNTIL THE EPIDURAL SPACE WAS REACHED, 7 CM DEEP INTO THE SKIN BY THE LOSS OF RESISTANCE TECHNIQUE. ISOVUE M DYE 30%, 0.25 ML, WAS INJECTED SHOWING ADEQUATE SPREAD OF THE DYE. THEN, A SOLUTION OF 3 ML OF NORMAL SALINE WITH DEPO-MEDROL 60 MG WAS INJECTED SLOWLY FOLLOWING PATIENT FEEDBACK. THERE WAS NO EVIDENCE OF BLOOD, PARESTHESIA OR CEREBROSPINAL FLUID DURING THE PROCEDURE. THE PATIENT WAS SENT TO THE RECOVERY ROOM. THE PATIENT WAS MOVING THE EXTREMITIES AND DOING WELL. THERE WAS NO COMPLICATION DURING THE PROCEDURE. FLUOROSCOPY TIME WAS 15 SECONDS. POST PROCEDURE NOTE THE PATIENT WILL BE SEEN IN A FOLLOW UP IN THE NEXT FEW WEEKS. I AM LOOKING FOR LONG LASTING PAIN RELIEF FOR THE PATIENT WITH THIS INJECTION. INSTRUCTIONS WERE GIVEN, QUESTIONS WERE ANSWERED, AND THE PATIENT EXPRESSED UNDERSTANDING AND AGREES WITH THE PLAN. I, DEDRICK PHAM, DOCUMENTED THE ABOVE INFORMATION ACTING A SCRIBE FOR DR. ZEPEDA. I HAVE REVIEWED THE ABOVE DOCUMENT, WRITTEN BY DEDRICK RAYA AND I VERIFY THAT IT IS ACCURATE. DIAGNOSTIC IMAGING [facility] FLUORO GUIDE SPINE INJECTION (PAIN)[id number] PROCEDURE CODES 17263 LUMBAR/SACRAL W/ IMAGING 6045F RADXPS IN END [id number] PXD DISPOSITION & COMMUNICATION FOLLOW UP 2 WEEKS ELECTRONICALLY SIGNED BY NANCY ZEPEDA MD, MD ON 12/03/2019 AT 10:06 AM EDT DISCLAIMER : THIS IS A VISIT SUMMARY EXTRACTED FROM THE [employer] CHART. IT IS NOT A COPY OF THE [employer] PROGRESS NOTE. MTDGely
== END ==
LOC: M PAIN 08:45
PROVIDERS: ATTEND Anesthesiology
DX: M51.16 Intervertebral disc disorders with radiculopathy, lumbar region (principal); Z79.82 Long term (current) use of aspirin; Z79.84 Long term (current) use of oral hypoglycemic drugs; Z79.899 Other long term (current) drug therapy; Z88.8 Allergy status to other drugs, medicaments and biological substances
CPT/HCPCS: 62323; J1030; Q9967

== ENCOUNTER → 2019-12-10 | Outpatient (CLI) | payer MEDICARE, OTHER ==
[~2019-12-10] MED LIST changes: -ISOVUE-M 300 61% 15ML VIAL (Q9967) As Ordered ONE; -LIDOCAINE 1% SDV INJ 30 ML VIAL As Ordered ONE; -methylPREDNISolone SUSP 40 MG/ML (DEPO-medrol) VIAL (J1030) As Ordered ONE
--- NOTE | 2019-12-12 03:17 | ECWPNPC ---
PATIENT NAME: RAFAEL NASH : 1935 GENDER: MALE VISIT DATE: 12/10/2019 DISCHARGE DATE: 12/10/19 1146 VISIT LOCKED DATE TIME: PHYSICIAN: ANIYAH CHRISTIAN PHYSICIAN PAGER NO: [phone] RESOURCE: ANIYAH CHRISTIAN REASON FOR APPOINTMENT 1. POST LESI HISTORY OF PRESENT ILLNESS HISTORY OF PRESENT ILLNESS: PAIN THE PATIENT DESCRIBES THE PAIN... PERMISSION REQUESTED AND RECEIVED FROM PATIENT TO PERFORM TELEHEALTH VISIT. 84-YEAR-OLD MALE IN FOR POST LUMBAR EPIDURAL INJECTION FOLLOW-UP. PATIENT FEELS THE PROCEDURE WAS VERY SUCCESSFUL OVERALL RATING HIS PAIN PREPROCEDURE AT A 10 OUT OF 10 AND POSTPROCEDURE AT A 0-4 OUT OF 10. HE FURTHER STATES THE PROCEDURE CONTINUES TO HELP HIM TODAY. FALL RISK SCREENING: SCREENING :NO FALLS REPORTED IN THE LAST YEAR CURRENT MEDICATIONS TAKING ASCORBIC ACID 500 MG TABLET 1 TABLET ORALLY ONCE A DAY TAKING ASPIR-81 1 TAB TABLET DELAYED RELEASE 1 TABLET ORALLY ONCE A DAY TAKING BLOOD GLUCOSE MONITOR SYSTEM W/DEVICE KIT DIRECTED _ DIRECTED E11.9 TAKING CHOLECALCIFEROL 50 MCG (1999 UT) CAPSULE 1 TABLET ORALLY ONCE A DAY TAKING CIALIS 20 MG TABLET 1 TABLET ORALLY EVERY 3 DAYS NEEDED TAKING FREESTYLE LANCETS - MISCELLANEOUS USE FOUR TIMES A DAY TAKING FREESTYLE LITE TEST - STRIP USE 4 TIMES A DAY TAKING FUROSEMIDE 20 MG TABLET 1 TAB(S) ORALLY DAILY NEEDED, NOTES: NONE RECENTLY, USES PRN FOR EDEMA TAKING HYDROCHLOROTHIAZIDE 12.5 MG TABLET DIRECTED ORALLY ONCE DAILY NEEDED FOR EDEMA, NOTES: 11-22-19899 TAKING JANUVIA 50 MG TABLET 1 TABLET ORALLY ONCE A DAY, NOTES: 11-22-19899 TAKING LIPITOR 40 MG TABLET 1 TABLET ORALLY ONCE A DAY, NOTES: 11-22-192199 TAKING LOTENSIN 20 MG TABLET 1 TABLET ORALLY ONCE A DAY, NOTES: 11-22-19 TAKING MAGNESIUM OXIDE 400 MG CAPSULE 1 CAPSULE ORALLY TWICE DAILY, NOTES: 11-22-19899 TAKING METFORMIN HCL 500 MG TABLET 1 TABLET WITH MEALS ORALLY ONCE A DAY, NOTES: 11-22-192199 TAKING POLYETHYLENE GLYCOL 1 POWDER 1 PACKET ORALLY ONCE DAILY NEEDED FOR CONSTIPATION, NOTES: 899 TAKING PROTONIX 40 MG TABLET DELAYED RELEASE TAKE ONE TABLET BY MOUTH EVERY DAY ORALLY DAILY, NOTES: 11-22-192199 TAKING LYRICA 100 MG CAPSULE 1 CAPSULE ORALLY ONCE A DAY CODE D, NOTES: 11-22-192199 TAKING NORVASC 5 MG TABLET 1 TABLET ORALLY ONCE A DAY, NOTES: 11-22-19 0900 NOT-TAKING CLOTRIMAZOLE-BETAMETHASONE 1-0.05 % CREAM 1 APPLICATION APPLY UNDER ARMS EXTERNALLY TWICE A DAY NEEDED NOT-TAKING PROAIR HFA 108 (90 BASE) MCG/ACT AEROSOL SOLUTION 2 PUFFS NEEDED INHALATION QID PRN MEDICATION LIST REVIEWED AND RECONCILED WITH THE PATIENT PAST MEDICAL HISTORY CHRONIC RHINITIS HTN RLS FATTY LIVER CT 09/16 DM TYPE 2; REFERRED ENDO/DR Sibley FISH 07/27 CAD S/P CABG 11/14 3 VESSEL, PCI/STENT 07/17 RCA DIVERTICULOSIS 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 BPH 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, MILD SPINAL STENOSIS CT SPINE 07/27; SEVERE L/S SPINAL STENOSIS AT L4-5 MRI AT [facility] 08/27 ALLERGIES BETA KHANH: DECREASED HR - SIDE EFFECTS SURGICAL HISTORY CABG-VIDAL TO LAD, SVG TO OM,SVG TO CX 11/14 PTCA/STENT RCA 07/17 COLONOSCOPY (ONLY HYPERPLASTIC POLYP FOUND) 2001,2009 EGD--NORMAL 06/22 EGD 09/2019 FAMILY HISTORY FATHER: 65 YRS, STROKE, DIAGNOSED WITH UNSPECIFIED CEREBRAL ARTERY OCCLUSION WITH CEREBRAL INFARCTION MOTHER: 100 YRS, OLD AGE SIBLINGS: ALIVE, HYPERTENSION, KIDNEY DISEASE, TYPE 2 DM SON(S): ALIVE DAUGHTER(S): ALIVE 2 BROTHER(S) , 8 SISTER(S) . 1 SON(S) , 2 DAUGHTER(S) - HEALTHY. REVIEWED, NO CHANGES. SOCIAL HISTORY GENERAL: TOBACCO USE ARE YOU A:NEVER SMOKER NEVER SMOKER HIV / HEP-C SCREENING HIV TEST OFFERED TO PATIENT:YES DELCINED DATE OFFERED:08/22/2018 TEST ACCEPTED:NO HEP-C TEST OFFERED TO PATIENT:YES DECLINED DATE OFFERED:08/22/2018 REASON:PATIENT DECLINED TEST ACCEPTED:NO REASON:PATIENT DECLINED BROCHURE PROVIDED TO PATIENTYES OTHERS AT HOME: SPOUSE. HOUSING: OWNS HOME. EDUCATION LEVEL OF EDUCATION:HIGH SCHOOL DIET: LOW FAT, LOW CHOLESTEROL, NO ADDED SALT. LANGUAGE LANGUAGES SPOKEN:GREEK DOMESTIC VIOLENCE DO YOU FEEL SAFE IN YOUR ENVIRONMENT?YES NEW PATIENT PAIN DIARY TODAY'S VISIT PT STATES "NO PAIN SICE PROCEDURE" PATIENT DESCRIBES PAIN :OTHER PT HAS NO PAIN SINCE PROCEDURE FROM 0-10, WHAT LEVEL IS YOUR PAIN TODAY?0 RECREATIONAL DRUG USE DRUG USE?NO EXERCISE: WALKS, DAILY 1-1.5 MILES. LEARNING BARRIERS / SPECIAL NEEDS CHANGE FROM LAST VISIT?NO BARRIERS TO LEARNING?NO HEARING IMPAIRED?NO VISION IMPAIRED?YES COGNITIVELY IMPAIRED?NO :CORRECTIVE LENSES READINESS TO LEARN?YES LEARNING PREFERENCES?NO LEARNING CAPABILITIES PRESENT?YES EMOTIONAL BARRIERS?NO SPECIAL DEVICES?NO EQUITY ANALYST NEEDED?NO PAIN CLINIC PFS, CLERGY, PUBLIC HEALTH REFERRALS HAS THE PATIENT BEEN EDUCATED REGARDING HIS/HER PLAN OF CARE?YES HAS THE PATIENT BEEN EDUCATED REGARDING PAIN, THE RISK FOR PAIN, THE IMPORTANCE OF EFFECTIVE PAIN MANAGEMENT, AND THE PAIN ASSESSMENT PROCESS?YES LATEX QUESTIONNAIRE LATEX ALLERGY : HAVE YOU EVER DEVELOPED ANY TYPE OF REACTION AFTER HANDLING LATEX PRODUCTS SUCH RUBBER GLOVES, CONDOMS, DIAPHRAGMS, BALLOONS, SOCKS, OR UNDERWEAR?NO LATEX ALLERGY : HAVE YOU EVER DEVELOPED ANY TYPE OF REACTION DURING OR AFTER DENTAL APPOINTMENT, VAGINAL/RECTAL EXAMINATION, SURGICAL PROCEDURE, OR ANY OTHER EXPOSURE?NO DATE ASKED : 12/05/2018 LATEX RISK : HAVE YOU EVER HAD ANY DIFFICULTY BREATHING OR HIVES AFTER EATING OR HANDLING ANY FRUITS, OR VEGETABLES; SUCH KIWI, BANANAS, STONE FRUITS, OR CHESTNUTSNO LATEX RISK : DO YOU HAVE A PREVIOUS PERSONAL HISTORY OF MORE THAN NINE SURGERIES, SPINA BIFIDA, OR REPEATED CATHERIZATIONS? NO LATEX RISK : ARE YOU FREQUENTLY EXPOSED TO LATEX PRODUCTS IN YOUR OCCUPATION?NO CAFFEINE CAFFEINE USE?NO ADVANCE DIRECTIVE ADVANCE DIRECTIVE DISCUSSED WITH PATIENT:YES DECLINED TAOISM TAOISM NO YARSANI BELIEFS THAT WOULD IMPACT HEALTH CARE. MARITAL STATUS: -REYNALDO. 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 SEXUAL HX HAD SEX IN THE LAST 12 MONTHS (VAGINAL, ORAL, OR ANAL)?NO HAVE YOU EVER HAD AN STD?NO REVIEWED, UPDATED. HOSPITALIZATION/MAJOR DIAGNOSTIC PROCEDURE SURGERY RELATED REVIEW OF SYSTEMS REVIEWED BY: PROVIDER: ROME NOLASCO . CONSTITUTIONAL: ANY CHANGE IN YOUR MEDICAL CONDITION? NO . CHILLS NO . FEVER NO . INFECTION: DO YOU HAVE NEW INFECTIONS? NO . DO YOU HAVE HISTORY OF MRSA? NO . MUSCULOSKELETAL: ANY NEW PATTERNS OF PAIN OR NUMBNESS? YES A DECREASE . GASTROENTEROLOGY: ANY NEW CHANGE IN BOWEL CONTROL? NO . GENITOURINARY: ANY NEW CHANGE IN BLADDER CONTROL? NO . IS THERE A CHANCE YOU COULD BE ? NO . HEMATOLOGY/LYMPH: DO YOU TAKE ANY BLOOD THINNERS? (FOR EXAMPLE- COUMADIN, PLAVIX, AGGRENOX, PLATEL, PRADAXA, OR XARELTO) NO . WHEN WAS YOUR LAST DOSE? DATE: TIME: . NEUROLOGY: HAVE YOU FALLEN IN THE PAST 12 MONTHS? NO . ANY NEW EXTREMITY NUMBNESS OR WEAKNESS? NO . CARDIOLOGY: DO YOU HAVE A PACEMAKER OR DEFIBRILLATOR? NO . RESPIRATORY: HAVE YOU BEEN SICK IN THE PAST WEEK? NO . FEVER NO . FLU LIKE SYMPTOMS? NO . COUGH NO . INTEGUMENTARY: DO YOU HAVE ANY RASHES OR OPEN SORES? NO . ALLERGIC/IMMUNO: ARE YOU ALLERGIC TO IV DYE? NO . ANY NEW ALLERGIES? NO . PSYCHIATRIC: DO YOU HAVE THOUGHTS OF HURTING YOURSELF OR SOMEONE ELSE? NO . ARE YOU ABUSED, NEGLECTED, OR IN AN UNSAFE ENVIRONMENT? NO . ENDOCRINOLOGY: ARE YOU DIABETIC? NO . OTHER: DO YOU NEED ANY PRESCRIPTIONS? NO . IF YES, PLEASE LIST: ____ . ANY NEW PROBLEMS WITH YOUR MEDICATIONS? NO . WHEN DID YOU LAST EAT? ____ . WHEN DID YOU LAST DRINK? ____ . WHAT DID YOU LAST DRINK? ____ . NAME OF PERSON DRIVING YOU HOME? ____ . DO YOU HAVE ANY OTHER QUESTIONS OR CONCERNS NO . ASSESSMENTS INTERVERTEBRAL DISC DISORDERS WITH RADICULOPATHY, LUMBAR REGION - M51.16 (PRIMARY) TREATMENT INTERVERTEBRAL DISC DISORDERS WITH RADICULOPATHY, LUMBAR REGION CLINICAL NOTES: 84-YEAR-OLD MALE IN FOR POST LESI FOLLOW-UP. GIVEN PRESENTING SYMPTOMS RECOMMEND FOLLOW-UP IN 2 MONTHS. PATIENT HAS EXPRESSED UNDERSTANDING OF AND WAS IN AGREEMENT WITH TREATMENT PLAN. GIVEN TIME TO ASK QUESTIONS AND EXPRESS CONCERNS. THIS VISIT TO REBUILD BASED ON TIME SPENT WITH PATIENT. TIME SPENT WITH PATIENT 11 MINUTES. . DISPOSITION & COMMUNICATION FOLLOW UP 2 MONTHS (REASON: BACK PAIN) ELECTRONICALLY SIGNED BY JAY SOSA ON 12/11/2019 AT 02:00 PM EDT DISCLAIMER : THIS IS A VISIT SUMMARY EXTRACTED FROM THE [employer] CHART. IT IS NOT A COPY OF THE [facility] PROGRESS NOTE. MTDD
== END ==
LOC: M PAIN 11:00
PROVIDERS: ATTEND Family Medicine
DX: M51.16 Intervertebral disc disorders with radiculopathy, lumbar region (principal); I10 Essential (primary) hypertension; E11.9 Type 2 diabetes mellitus without complications; Z79.82 Long term (current) use of aspirin; Z79.899 Other long term (current) drug therapy; Z88.8 Allergy status to other drugs, medicaments and biological substances; Z95.5 Presence of coronary angioplasty implant and graft

== ENCOUNTER → 2020-02-09 | Outpatient (CLI) | payer MEDICARE, OTHER ==
--- NOTE | 2020-02-11 04:09 | ECWPNPC ---
PATIENT NAME: RAFAEL NASH : 1935 GENDER: MALE VISIT DATE: 02/09/2020 DISCHARGE DATE: 02/09/20 0952 VISIT LOCKED DATE TIME: PHYSICIAN: ANIYAH CHRISTIAN PHYSICIAN PAGER NO: [phone] RESOURCE: ANIYAH CHRISTIAN REASON FOR APPOINTMENT 1. BACK PAIN HISTORY OF PRESENT ILLNESS GENERAL: -84 YEAR OLD MALE IN FOR CHRONIC PAIN FOLLOW UP. HE RATES HIS PAIN AT A 0/10 CURRENTLY. HE FEELS THE PREVIOUS PROCEDURE THAT HE HAD DONE IN NOVEMBER CONTINUES TO HELP HIM TODAY. HE RATES HIS PAIN CURRENTLY AT A 0 OUT OF 10. PAIN SCREENING: PATIENT HAS A COMPLAINT OF ACUTE OR CHRONIC PAIN :YES NO PAIN IN LOWER BACK LOCATION OF PAIN:LEFT SHOULDER THAT STARTED LAST NIGHT INTENSITY OF PAIN (SCALE OF 1 TO 10):4 WHAT DOES YOUR PAIN FEEL LIKE:TENDER, SORE DURATION:CONSTANT, STEADY, AWAKENS FROM SLEEP PAIN IS INCREASED BY:OTHERS LIFTING PAIN IS DECREASED BY:OTHERS HEAT FALL RISK SCREENING: SCREENING :NO FALLS REPORTED IN THE LAST YEAR DEPRESSION SCREENING: PHQ-2 (2015 EDITION) LITTLE INTEREST OR PLEASURE IN DOING THINGS?NOT AT ALL FEELING DOWN, DEPRESSED, OR HOPELESS?NOT AT ALL TOTAL SCORE0 PAIN CENTER INTAKE QUESTIONS: DO YOU HAVE A HISTORY OF MRSA? :NO DO YOU TAKE A BLOOD THINNERS? :NO DO YOU HAVE ANY BLEEDING DISORDERS? :NO ANY NEW NUMBNESS OR WEAKNESS IN YOUR LEGS OR ARMS? :YES PT STAED HE HAS BEEN HAVING PAIN IN RIGHT SHOULDER ANY PACEMAKER,DEFIBRILLATOR, OR DORSAL COLUMN STIMULATOR? :NO DO YOU HAVE ANY RASHES OR OPEN SORES? :NO ARE YOU ALLERGIC TO IV DYE? :NO ARE YOU DIABETIC? :YES ANY NEW PROBLEMS WITH YOUR MEDICATIONS? :NO HAVE YOU RECEIVED A VACCINE IN THE PAST 30 DAYS? :NO DO YOU PLAN TO RECEIVE A VACCINE IN THE NEXT 21 DAYS? :NO DO YOU NEED ANY PRESCRIPTION? :NO DO YOU TAKE ANY IMMUNOSUPPRESSIVE MEDICATIONS? :NO NURSING NOTE: -. CURRENT MEDICATIONS TAKING ASCORBIC ACID 500 MG TABLET 1 TABLET ORALLY ONCE A DAY TAKING ASPIR-81 1 TAB TABLET DELAYED RELEASE 1 TABLET ORALLY ONCE A DAY TAKING BLOOD GLUCOSE MONITOR SYSTEM W/DEVICE KIT DIRECTED _ DIRECTED E11.9 TAKING CHOLECALCIFEROL 50 MCG (2000 UT) CAPSULE 1 TABLET ORALLY ONCE A DAY TAKING CIALIS 20 MG TABLET 1 TABLET ORALLY EVERY 3 DAYS NEEDED TAKING FREESTYLE LANCETS - MISCELLANEOUS USE FOUR TIMES A DAY TAKING FREESTYLE LITE TEST - STRIP USE 4 TIMES A DAY TAKING FUROSEMIDE 20 MG TABLET 1 TAB(S) ORALLY DAILY NEEDED, NOTES: NONE RECENTLY, USES PRN FOR EDEMA TAKING HYDROCHLOROTHIAZIDE 12.5 MG TABLET DIRECTED ORALLY ONCE DAILY NEEDED FOR EDEMA, NOTES: 11-22-19899 TAKING MAGNESIUM OXIDE 400 MG CAPSULE 1 CAPSULE ORALLY TWICE DAILY, NOTES: 11-22-19899 TAKING POLYETHYLENE GLYCOL 1 POWDER 1 PACKET ORALLY ONCE DAILY NEEDED FOR CONSTIPATION, NOTES: 899 TAKING JANUVIA 50 MG TABLET 1 TABLET ORALLY ONCE A DAY, NOTES: 11-22-19899 TAKING LOTENSIN 20 MG TABLET 1 TABLET ORALLY ONCE A DAY, NOTES: 11-22-19 TAKING NORVASC 5 MG TABLET 1 TABLET ORALLY ONCE A DAY, NOTES: 11-22-19899 TAKING METFORMIN HCL 500 MG TABLET 1 TABLET WITH MEALS ORALLY ONCE A DAY, NOTES: 11-22-192199 TAKING LIPITOR 40 MG TABLET 1 TABLET ORALLY ONCE A DAY, NOTES: 11-22-192199 TAKING PROTONIX 40 MG TABLET DELAYED RELEASE TAKE ONE TABLET BY MOUTH EVERY DAY ORALLY DAILY TAKING LYRICA 100 MG CAPSULE 1 CAPSULE ORALLY BID CODE D, NOTES: 11-22-192199 NOT-TAKING CLOTRIMAZOLE-BETAMETHASONE 1-0.05 % CREAM 1 APPLICATION APPLY UNDER ARMS EXTERNALLY TWICE A DAY NEEDED NOT-TAKING PROAIR HFA 108 (90 BASE) MCG/ACT AEROSOL SOLUTION 2 PUFFS NEEDED INHALATION QID PRN MEDICATION LIST REVIEWED AND RECONCILED WITH THE PATIENT PAST MEDICAL HISTORY CHRONIC RHINITIS HTN RLS FATTY LIVER CT 09/16 DM TYPE 2; REFERRED ENDO/DR Maryjo HITCHCOCK 07/27 CAD S/P CABG 11/14 3 VESSEL, PCI/STENT 07/17 RCA DIVERTICULOSIS 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 BPH 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, MILD SPINAL STENOSIS CT SPINE 07/27; SEVERE L/S SPINAL STENOSIS AT L4-5 MRI AT [facility] 08/27; RESPONDED TO PAIN CLINIC INTERVENTIONS ALLERGIES BETA KHANH: DECREASED HR - SIDE EFFECTS SURGICAL HISTORY CABG-VIDAL TO LAD, SVG TO OM,SVG TO CX 11/14 PTCA/STENT RCA 07/17 COLONOSCOPY (ONLY HYPERPLASTIC POLYP FOUND) EGD--NORMAL 06/22 EGD 09/2019 FAMILY HISTORY FATHER: 65 YRS, STROKE, DIAGNOSED WITH UNSPECIFIED CEREBRAL ARTERY OCCLUSION WITH CEREBRAL INFARCTION MOTHER: 100 YRS, OLD AGE SIBLINGS: ALIVE, HYPERTENSION, KIDNEY DISEASE, TYPE 2 DM SON(S): ALIVE DAUGHTER(S): ALIVE 2 BROTHER(S) , 8 SISTER(S) . 1 SON(S) , 2 DAUGHTER(S) - HEALTHY. REVIEWED, NO CHANGES. SOCIAL HISTORY GENERAL: TOBACCO USE ARE YOU A:NEVER SMOKER NEVER SMOKER LATEX QUESTIONNAIRE LATEX ALLERGY : HAVE YOU EVER DEVELOPED ANY TYPE OF REACTION AFTER HANDLING LATEX PRODUCTS SUCH RUBBER GLOVES, CONDOMS, DIAPHRAGMS, BALLOONS, SOCKS, OR UNDERWEAR?NO LATEX ALLERGY : HAVE YOU EVER DEVELOPED ANY TYPE OF REACTION DURING OR AFTER DENTAL APPOINTMENT, VAGINAL/RECTAL EXAMINATION, SURGICAL PROCEDURE, OR ANY OTHER EXPOSURE?NO LATEX RISK : HAVE YOU EVER HAD ANY DIFFICULTY BREATHING OR HIVES AFTER EATING OR HANDLING ANY FRUITS, OR VEGETABLES; SUCH KIWI, BANANAS, STONE FRUITS, OR CHESTNUTSNO LATEX RISK : DO YOU HAVE A PREVIOUS PERSONAL HISTORY OF MORE THAN NINE SURGERIES, SPINA BIFIDA, OR REPEATED CATHERIZATIONS? NO LATEX RISK : ARE YOU FREQUENTLY EXPOSED TO LATEX PRODUCTS IN YOUR OCCUPATION?NO DATE ASKED : 02/09/2020 ALCOHOL SCREENING DID YOU HAVE A DRINK CONTAINING ALCOHOL IN THE PAST YEAR?YES HOW OFTEN DID YOU HAVE A DRINK CONTAINING ALCOHOL IN THE PAST YEAR?MONTHLY OR LESS (1 POINT) POINTS1 INTERPRETATIONNEGATIVE RECREATIONAL DRUG USE DRUG USE?NO CAFFEINE CAFFEINE USE?NO SEXUAL HX HAD SEX IN THE LAST 12 MONTHS (VAGINAL, ORAL, OR ANAL)?NO HAVE YOU EVER HAD AN STD?NO HIV / HEP-C SCREENING HIV TEST OFFERED TO PATIENT:YES DELCINED DATE OFFERED:08/22/2018 TEST ACCEPTED:NO HEP-C TEST OFFERED TO PATIENT:YES DECLINED DATE OFFERED:08/22/2018 REASON:PATIENT DECLINED TEST ACCEPTED:NO REASON:PATIENT DECLINED BROCHURE PROVIDED TO PATIENTYES ADVENTIST ADVENTIST NO HINDUISM BELIEFS THAT WOULD IMPACT HEALTH CARE. 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 DIET: LOW FAT, LOW CHOLESTEROL, NO ADDED SALT. EXERCISE: WALKS, DAILY 1-1.5 MILES. MARITAL STATUS: -REYNALDO. OTHERS AT HOME: SPOUSE. NEW PATIENT PAIN DIARY TODAY'S VISIT PT STATES "NO PAIN SICE PROCEDURE" PATIENT DESCRIBES PAIN :OTHER PT HAS NO PAIN SINCE PROCEDURE FROM 0-10, WHAT LEVEL IS YOUR PAIN TODAY?0 PAIN CLINIC PFS, CLERGY, PUBLIC HEALTH REFERRALS HAS THE PATIENT BEEN EDUCATED REGARDING HIS/HER PLAN OF CARE?YES HAS THE PATIENT BEEN EDUCATED REGARDING PAIN, THE RISK FOR PAIN, THE IMPORTANCE OF EFFECTIVE PAIN MANAGEMENT, AND THE PAIN ASSESSMENT PROCESS?YES HOUSING: OWNS HOME. ADVANCE DIRECTIVE ADVANCE DIRECTIVE DISCUSSED WITH PATIENT:YES DECLINED REVIEWED, UPDATED. HOSPITALIZATION/MAJOR DIAGNOSTIC PROCEDURE SURGERY RELATED REVIEW OF SYSTEMS CONSTITUTIONAL: ANY RECENT FEVER OR ILLNESS NO . CHILLS NO . GASTROENTEROLOGY: BOWEL INCONTINENCE NO . ANY NEW CHANGE IN BOWEL CONTROL? NO . ABDOMINAL PAIN NO . CONSTIPATION NO . GENITOURINARY: ANY NEW CHANGE IN BLADDER CONTROL? NO . IS THERE A CHANCE YOU COULD BE ? NO . URINARY INCONTINENCE NO . CARDIOLOGY: CHEST PRESSURE NO . CHEST PAIN NO . RESPIRATORY: COUGH NO . SHORTNESS OF BREATH NO . VITAL SIGNS WT 189 LBS, HT 70 IN, BMI 27.12 INDEX, BP 161/70 MM HG, HR 76 /MIN, RR 18 /MIN, TEMP 97.6 F, OXYGEN SAT % 96%, SAFE IN ENV? (Y/N) YES, NA INITIALS AW [id number] ASUMADU CLERK GUIDE. EXAMINATION GENERAL EXAMINATION: GENERALNO ACUTE DISTRESS, WELL NOURISHED AND HYDRATED. PSYCHAPPROPRIATE MOOD AND AFFECT . LUNGS:CLEAR TO AUSCULTATION BILATERALLY, NO WHEEZES, RHONCHI, RALES. HEART:NO MURMURS, REGULAR RATE AND RHYTHM. ASSESSMENTS INTERVERTEBRAL DISC DISORDERS WITH RADICULOPATHY, LUMBAR REGION - M51.16 (PRIMARY) TREATMENT INTERVERTEBRAL DISC DISORDERS WITH RADICULOPATHY, LUMBAR REGION CLINICAL NOTES: 84-YEAR-OLD MALE IN FOR CHRONIC PAIN FOLLOW-UP. GIVEN PRESENTING SYMPTOMS RECOMMEND FOLLOW-UP IN CLINIC IN 2 MONTHS. PATIENT HAS EXPRESSED UNDERSTANDING OF AND WAS IN AGREEMENT WITH TREATMENT PLAN. GIVEN TIME TO ASK QUESTIONS AND EXPRESS CONCERNS. PROCEDURE CODES FA211 ESTABILISHED PATIENT ORIENTAL ORTHODOX FACILITY CHARGE DISPOSITION & COMMUNICATION FOLLOW UP 2 MONTHS (REASON: BACK PAIN ) ELECTRONICALLY SIGNED BY JAY SOSA ON 02/10/2020 AT 08:09 AM EDT DISCLAIMER : THIS IS A VISIT SUMMARY EXTRACTED FROM THE [employer] CHART. IT IS NOT A COPY OF THE [employer] PROGRESS NOTE. CODY
== END ==
LOC: M PAIN 09:00
PROVIDERS: ATTEND Family Medicine
DX: M51.16 Intervertebral disc disorders with radiculopathy, lumbar region (principal); I10 Essential (primary) hypertension; E11.9 Type 2 diabetes mellitus without complications; Z79.82 Long term (current) use of aspirin; Z79.84 Long term (current) use of oral hypoglycemic drugs; Z79.891 Long term (current) use of opiate analgesic; Z79.899 Other long term (current) drug therapy; Z88.8 Allergy status to other drugs, medicaments and biological substances; Z95.5 Presence of coronary angioplasty implant and graft

== ENCOUNTER → 2020-09-01 | Outpatient (REF) | payer MEDICARE, OTHER ==
[~2020-09-01] MED LIST changes: +AMLO1TAB24 PO; -AMLO5TAB6 PO; +PANT40TA29 PO; -PANT40TA3 PO
[2020-09-01 14:08] LABS: INFLUENZA A AMPLIFICATION NEGATIVE (NEGATIVE); INFLUENZA B AMPLIFICATION NEGATIVE (NEGATIVE)
[2020-09-03 16:07] LABS: Lyme Disease IgG/IgM Antibodie <0.91 ISR (0.00-0.90); Lyme Disease IgM Ab Quantitati <0.80 index (0.00-0.79)
== END ==
LOC: M LAB REF 13:14
PROVIDERS: ATTEND Physician Assistant
DX: R53.83 Other fatigue (principal)

== ENCOUNTER → 2020-12-27 | Outpatient (CLI) | payer MEDICARE, OTHER ==
[~2020-12-27] MED LIST changes: -PEG1POW PO; +POLY17PO18 PO
[2020-12-27 10:22] LABS: HEMOGLOBIN 13.3 g/dl (13.5-17.5); MEAN CORPUSCULAR HGB CONC 32.4 g/dl (32.0-36.5); MEAN CORPUSCULAR VOLUME 92.6 fl (80.0-96.0); PLATELET COUNT, AUTOMATED 224 10^3/uL (150-450); RED BLOOD COUNT 4.43 10^6/uL (4.30-6.10); WHITE BLOOD COUNT 7.9 10^3/uL (4.0-10.0)
[2020-12-27 10:38] LABS: HEMOGLOBIN A1c 7.5 %
[2020-12-27 10:51] LABS: ALBUMIN 3.6 GM/DL (3.2-5.2); BILIRUBIN,TOTAL 0.3 MG/DL (0.2-1.0); CALCIUM LEVEL 9.2 MG/DL (8.8-10.2); CHOLESTEROL RISK RATIO 3.027 (<5); CREATININE FOR GFR 1.4 MG/DL (0.70-1.30); GLOMERULAR FILTRATION RATE 51.4 (>35); POTASSIUM SERUM 4.7 MEQ/L (3.5-5.1); TOTAL PROTEIN 7.1 GM/DL (6.4-8.2)
== END ==
LOC: M WUC 08:31
PROVIDERS: ATTEND Family Medicine
DX: I13.10 Hypertensive heart and chronic kidney disease without heart failure, with stage 1 through stage 4 chronic kidney disease, or unspecified chronic kidney disease (principal); E78.2 Mixed hyperlipidemia; E11.22 Type 2 diabetes mellitus with diabetic chronic kidney disease; N18.30 Chronic kidney disease, stage 3 unspecified

== ENCOUNTER → 2021-03-27 | Outpatient (REF) | payer MEDICARE, OTHER | LOC: M LAB REF 17:53 | PROVIDERS: ATTEND Internal Medicine Nephrology | DX: N18.30 Chronic kidney disease, stage 3 unspecified (principal); E11.40 Type 2 diabetes mellitus with diabetic neuropathy, unspecified; I12.9 Hypertensive chronic kidney disease with stage 1 through stage 4 chronic kidney disease, or unspecified chronic kidney disease ==

== ENCOUNTER → 2021-06-15 | Outpatient (REF) | payer MEDICARE, OTHER | LOC: M LAB REF 13:02 | PROVIDERS: ATTEND Internal Medicine Nephrology | DX: E83.42 Hypomagnesemia (principal) ==

== ENCOUNTER 2022-04-01 19:58 | Emergency (ER) | payer MEDICARE, OTHER ==
[~2022-04-01] VITALS: Ht 177.8 cm; Wt 88.9 kg
[~2022-04-01 19:58] MED LIST changes: +BENA-8 PO; -BENA20TA8 PO
[2022-04-01 20:00] VITALS: BP 160/74
== END 2022-04-01 22:11 | disposition home or self-care (01) ==
LOC: M ED 19:58
DX: S89.91XA Unspecified injury of right lower leg, initial encounter (principal); S43.402A Unspecified sprain of left shoulder joint, initial encounter; W01.10XA Fall on same level from slipping, tripping and stumbling with subsequent striking against unspecified object, initial encounter; Y92.094 Garage of other non-institutional residence as the place of occurrence of the external cause; K21.9 Gastro-esophageal reflux disease without esophagitis; E11.43 Type 2 diabetes mellitus with diabetic autonomic (poly)neuropathy; E78.5 Hyperlipidemia, unspecified; I10 Essential (primary) hypertension; Z95.1 Presence of aortocoronary bypass graft; Z95.5 Presence of coronary angioplasty implant and graft; Z79.82 Long term (current) use of aspirin; Z79.84 Long term (current) use of oral hypoglycemic drugs; Z79.899 Other long term (current) drug therapy

== ENCOUNTER → 2022-11-30 | Outpatient (REF) | payer MEDICARE, OTHER ==
[2022-11-30 14:01] LABS: ALBUMIN 3.6 G/DL (3.2-5.2); BILIRUBIN,TOTAL 0.8 MG/DL (0.3-1.2); CHOLESTEROL RISK RATIO 2.7 (<5); CREATININE FOR GFR 1.35 MG/DL (0.70-1.30); GLOMERULAR FILTRATION RATE 53.3 (>35); HDL CHOLESTEROL 42.1 MG/DL (>40); LDL CHOLESTEROL 58.1 MG/DL (<100); NON-HDL-C 71.9 MG/DL; POTASSIUM SERUM 4.7 MMOL/L (3.5-5.1); TOTAL PROTEIN 6.9 G/DL (5.7-8.2)
[2022-11-30 14:13] LABS: HEMATOCRIT 42.3 % (42.0-52.0); HEMOGLOBIN 13.4 g/dl (13.5-17.5); MEAN CORPUSCULAR HEMOGLOBIN 30.2 pg (27.0-33.0); MEAN CORPUSCULAR HGB CONC 31.7 g/dl (32.0-36.5); MEAN CORPUSCULAR VOLUME 95.5 fl (80.0-96.0); PLATELET COUNT, AUTOMATED 198 10^3/uL (150-450); RED BLOOD COUNT 4.43 10^6/uL (4.30-6.10); WHITE BLOOD COUNT 6.4 10^3/uL (4.0-10.0)
== END ==
LOC: M SFHCADAM 10:02
PROVIDERS: ATTEND Family Medicine
DX: I11.9 Hypertensive heart disease without heart failure (principal); E11.22 Type 2 diabetes mellitus with diabetic chronic kidney disease; E78.2 Mixed hyperlipidemia

== ENCOUNTER → 2023-01-16 | Outpatient (CLI) | payer MEDICARE, OTHER | LOC: M PAIN 08:15 | PROVIDERS: ATTEND Anesthesiology | DX: M51.16 Intervertebral disc disorders with radiculopathy, lumbar region (principal); M54.50 Low back pain, unspecified; M79.10 Myalgia, unspecified site ==

== ENCOUNTER → 2023-01-16 | Outpatient (CLI) | payer MEDICARE, OTHER | LOC: M PAIN 09:15 | PROVIDERS: ATTEND Anesthesiology | DX: M51.16 Intervertebral disc disorders with radiculopathy, lumbar region (principal); M54.50 Low back pain, unspecified; M79.10 Myalgia, unspecified site; G89.29 Other chronic pain; I10 Essential (primary) hypertension; G25.81 Restless legs syndrome; E11.40 Type 2 diabetes mellitus with diabetic neuropathy, unspecified; Z95.1 Presence of aortocoronary bypass graft; Z88.8 Allergy status to other drugs, medicaments and biological substances ==

== ENCOUNTER → 2023-05-27 | Outpatient (REF) | payer MEDICARE, OTHER ==
[2023-05-27 19:20] LABS: HEMATOCRIT 36.6 % (42.0-52.0); HEMOGLOBIN 11.6 g/dl (13.5-17.5); MEAN CORPUSCULAR HEMOGLOBIN 30.3 pg (27.0-33.0); MEAN CORPUSCULAR HGB CONC 31.7 g/dl (32.0-36.5); MEAN CORPUSCULAR VOLUME 95.6 fl (80.0-96.0); PLATELET COUNT, AUTOMATED 209 10^3/uL (150-450); RED BLOOD COUNT 3.83 10^6/uL (4.30-6.10); WHITE BLOOD COUNT 7.8 10^3/uL (4.0-10.0)
[2023-05-27 20:00] LABS: ALBUMIN 3.2 G/DL (3.2-5.2); BILIRUBIN,TOTAL 0.7 MG/DL (0.3-1.2); CALCIUM LEVEL 8.3 MG/DL (8.3-10.6); CHOLESTEROL RISK RATIO 2.59 (<5); CREATININE FOR GFR 1.56 MG/DL (0.70-1.30); GLOMERULAR FILTRATION RATE 45.1 (>35); HDL CHOLESTEROL 41.2 MG/DL (>40); LDL CHOLESTEROL 35.8 MG/DL (<100); NON-HDL-C 65.8 MG/DL; POTASSIUM SERUM 4.8 MMOL/L (3.5-5.1); TOTAL PROTEIN 6.5 G/DL (5.7-8.2)
[2023-05-27 20:06] LABS: HEMOGLOBIN A1c 8.8 % (4.0-6.0)
== END ==
LOC: M SFHCADAM 14:11
PROVIDERS: ATTEND Family Medicine
DX: E11.22 Type 2 diabetes mellitus with diabetic chronic kidney disease (principal); I25.10 Atherosclerotic heart disease of native coronary artery without angina pectoris; E78.2 Mixed hyperlipidemia

== ENCOUNTER → 2023-06-15 | Outpatient (CLI) | payer MEDICARE, OTHER | LOC: M RAD 14:33 | PROVIDERS: ATTEND Anesthesiology | DX: M48.061 Spinal stenosis, lumbar region without neurogenic claudication (principal); N28.1 Cyst of kidney, acquired; M51.26 Other intervertebral disc displacement, lumbar region ==

== ENCOUNTER → 2023-09-25 | Outpatient (CLI) | payer MEDICARE, OTHER | LOC: M PAIN 09:15 | PROVIDERS: ATTEND Anesthesiology | DX: M79.10 Myalgia, unspecified site (principal); M54.50 Low back pain, unspecified; M54.6 Pain in thoracic spine; J31.0 Chronic rhinitis; I12.9 Hypertensive chronic kidney disease with stage 1 through stage 4 chronic kidney disease, or unspecified chronic kidney disease; E11.22 Type 2 diabetes mellitus with diabetic chronic kidney disease; I25.10 Atherosclerotic heart disease of native coronary artery without angina pectoris; N40.0 Benign prostatic hyperplasia without lower urinary tract symptoms; N18.31 Chronic kidney disease, stage 3a; E11.42 Type 2 diabetes mellitus with diabetic polyneuropathy; M51.37 Other intervertebral disc degeneration, lumbosacral region; M48.061 Spinal stenosis, lumbar region without neurogenic claudication; Z79.84 Long term (current) use of oral hypoglycemic drugs; Z79.899 Other long term (current) drug therapy; Z88.8 Allergy status to other drugs, medicaments and biological substances ==

== ENCOUNTER → 2023-11-15 | Outpatient (REF) | payer MEDICARE, OTHER ==
[2023-11-15 14:49] LABS: ALBUMIN 3.3 G/DL (3.2-5.2); BILIRUBIN,TOTAL 0.7 MG/DL (0.3-1.2); CALCIUM LEVEL 8.6 MG/DL (8.3-10.6); CHOLESTEROL RISK RATIO 2.39 (<5); CREATININE FOR GFR 1.88 MG/DL (0.70-1.30); FOLATE 19.11 NG/ML (>5.4); GLOMERULAR FILTRATION RATE 36.3 (>35); HDL CHOLESTEROL 41.3 MG/DL (>40); LDL CHOLESTEROL 49.3 MG/DL (<100); NON-HDL-C 57.7 MG/DL; POTASSIUM SERUM 5.4 MMOL/L (3.5-5.1); TOTAL PROTEIN 6.6 G/DL (5.7-8.2)
== END ==
LOC: M SFHCADAM 09:49
PROVIDERS: ATTEND Family Medicine
DX: I25.10 Atherosclerotic heart disease of native coronary artery without angina pectoris (principal); N18.31 Chronic kidney disease, stage 3a; E11.49 Type 2 diabetes mellitus with other diabetic neurological complication

== ENCOUNTER → 2023-11-27 | Outpatient (CLI) | payer MEDICARE, OTHER | LOC: M PAIN 13:30 | PROVIDERS: ATTEND Anesthesiology | DX: M54.50 Low back pain, unspecified (principal); M47.816 Spondylosis without myelopathy or radiculopathy, lumbar region; G89.29 Other chronic pain; I12.9 Hypertensive chronic kidney disease with stage 1 through stage 4 chronic kidney disease, or unspecified chronic kidney disease; E11.22 Type 2 diabetes mellitus with diabetic chronic kidney disease; I25.10 Atherosclerotic heart disease of native coronary artery without angina pectoris; N40.0 Benign prostatic hyperplasia without lower urinary tract symptoms; N18.31 Chronic kidney disease, stage 3a; E11.42 Type 2 diabetes mellitus with diabetic polyneuropathy; Z79.84 Long term (current) use of oral hypoglycemic drugs; Z79.899 Other long term (current) drug therapy; Z88.8 Allergy status to other drugs, medicaments and biological substances ==

== ENCOUNTER → 2024-12-10 | Outpatient (REF) | payer MEDICARE, OTHER ==
[~2024-12-10] MED LIST changes: -CYCL5TAB PO; +CYCL5TAB4 PO
[2024-12-10 18:33] LABS: HEMATOCRIT 37.4 % (42.0-52.0); HEMOGLOBIN 12.1 g/dl (13.5-17.5); MEAN CORPUSCULAR HEMOGLOBIN 30.1 pg (27.0-33.0); MEAN CORPUSCULAR HGB CONC 32.4 g/dl (32.0-36.5); PLATELET COUNT, AUTOMATED 194 10^3/uL (150-450); RED BLOOD COUNT 4.02 10^6/uL (4.30-6.10); WHITE BLOOD COUNT 8.7 10^3/uL (4.0-10.0)
[2024-12-10 18:37] LABS: ALBUMIN 3.4 G/DL (3.2-5.2); BILIRUBIN,TOTAL 0.6 MG/DL (0.3-1.2); CALCIUM LEVEL 9.1 MG/DL (8.3-10.6); CHOLESTEROL RISK RATIO 2.4 (<5); CREATININE FOR GFR 1.6 MG/DL (0.70-1.30); FREE T4 1.07 NG/DL (0.89-1.76); GLOMERULAR FILTRATION RATE 41.2 (>35); HDL CHOLESTEROL 52.5 MG/DL (>40); LDL CHOLESTEROL 61.1 MG/DL (<100); NON-HDL-C 73.5 MG/DL; THYROID STIMULATING HORMONE 1.07 uIU/ML (0.55-4.78); TOTAL PROTEIN 7.5 G/DL (5.7-8.2)
[2024-12-10 18:39] LABS: FOLATE 20.23 NG/ML (>5.4)
[2024-12-10 18:49] LABS: HEMOGLOBIN A1c 9.2 % (4.0-6.0)
== END ==
LOC: M SFHCADAM 14:45
PROVIDERS: ATTEND Family Medicine
DX: R26.89 Other abnormalities of gait and mobility (principal); G62.9 Polyneuropathy, unspecified; I25.10 Atherosclerotic heart disease of native coronary artery without angina pectoris; I11.9 Hypertensive heart disease without heart failure; E11.22 Type 2 diabetes mellitus with diabetic chronic kidney disease

== ENCOUNTER → 2025-01-01 | Outpatient (REF) | payer MEDICARE, OTHER | LOC: M SFHCADAM 11:53 | PROVIDERS: ATTEND Family Medicine | DX: R35.89 Other polyuria (principal) ==

== ENCOUNTER → 2025-01-01 | Outpatient (CLI) | payer MEDICARE, OTHER | LOC: M ADAMS 12:01 | PROVIDERS: ATTEND Family Medicine | DX: R53.83 Other fatigue (principal); R91.8 Other nonspecific abnormal finding of lung field ==

== ENCOUNTER → 2025-06-29 | Outpatient (CLI) | payer MEDICARE, OTHER ==
[~2025-06-29] MED LIST changes: +HYDR12.510 PO; -HYDR12CA PO
[2025-06-29 15:01] LABS: PLATELET COUNT, AUTOMATED 184 10^3/uL (150-450)
[2025-06-29 15:05] LABS: ALT/SGPT 56.0 U/L (7.0-40); AST/SGOT 54.0 U/L (<34); CALCIUM LEVEL 8.5 MG/DL (8.3-10.6); CARBON DIOXIDE LEVEL 29.0 MMOL/L (20-31); CHLORIDE LEVEL 104.0 MMOL/L (98-107); CHOLESTEROL LEVEL 135.0 MG/DL (<200); CHOLESTEROL RISK RATIO 2.84 (<5); CREATININE FOR GFR 1.53 MG/DL (0.70-1.30); GLOMERULAR FILTRATION RATE 43.5 (>35); LDL CHOLESTEROL 70.8 MG/DL (<100); NON-HDL-C 87.6 MG/DL; POTASSIUM SERUM 4.5 MMOL/L (3.5-5.1); SODIUM LEVEL 142.0 MMOL/L (136-145); TRIGLYCERIDES LEVEL 84.0 MG/DL (<150)
[2025-06-29 15:06] LABS: TOTAL 25(OH) VITAMIN D 35.8 NG/ML (20.0-100.0)
[2025-06-29 15:41] LABS: ESTIMATED AVERAGE GLUCOSE 235.0 MG/DL (60-110)
== END ==
LOC: M WUC 10:26
PROVIDERS: ATTEND Family Medicine
DX: N18.31 Chronic kidney disease, stage 3a (principal); E11.22 Type 2 diabetes mellitus with diabetic chronic kidney disease; E67.3 Hypervitaminosis D; G62.9 Polyneuropathy, unspecified; E11.49 Type 2 diabetes mellitus with other diabetic neurological complication; I25.10 Atherosclerotic heart disease of native coronary artery without angina pectoris; R55 Syncope and collapse

== ENCOUNTER → 2025-07-01 | Outpatient (REF) | payer MEDICARE, OTHER | LOC: M LAB REF 11:36 | PROVIDERS: ATTEND Internal Medicine Gastroenterology | DX: R19.4 Change in bowel habit (principal); R19.7 Diarrhea, unspecified ==

== ENCOUNTER 2025-07-14 09:54 | Day surgery (SDC) | payer MEDICARE, OTHER ==
[~2025-07-14] VITALS: Ht 177.8 cm; Wt 80.3 kg
[~2025-07-14 09:54] MED LIST changes: +AMLO1TAB25 PO; +BENA1TAB24 PO; +CLOT1CRE71; +LIDOCAINE 2% 100 MG/5 ML SDV (FOR ANES.) As Ordered ONE; +PREG100C2 PO; +TAMS1CAP17 PO; +VITA100093 PO
[2025-07-14 11:55] VITALS: BP 175/68; O2SAT 96
== END 2025-07-14 12:15 | disposition home or self-care (01) ==
LOC: M OPP 09:54
PROVIDERS: ATTEND Internal Medicine Gastroenterology
DX: K64.0 First degree hemorrhoids (principal); K57.30 Diverticulosis of large intestine without perforation or abscess without bleeding; R19.4 Change in bowel habit; Z95.5 Presence of coronary angioplasty implant and graft; Z79.82 Long term (current) use of aspirin; Z79.84 Long term (current) use of oral hypoglycemic drugs; Z79.899 Other long term (current) drug therapy; Z95.1 Presence of aortocoronary bypass graft
CPT/HCPCS: 45380; 88305; J3010